=== PATIENT | male | born 1955 | race African-American/Black ===

== ENCOUNTER 2019-02-21 09:27 | Inpatient (IN) | payer BC, SELFPAY ==
--- NOTE | 2019-02-21 09:50 | RAD ---
EXAM: Chest PA and lateral: HISTORY: Cough COMPARISON: None FINDINGS: Heart: Normal cardiac silhouette Aorta: Unremarkable Pulmonary vessels: Normal Costophrenic angles: Costophrenic angles are clear. Lungs: No consolidation or masses. Pneumothorax: No pneumothorax Osseous structures: No osseous abnormalities IMPRESSION: No acute cardiopulmonary process.
[2019-02-21 09:54] LABS: #Eosinphils 0.1 thou/uL (0.0-0.7); #Lymphocytes 0.8 thou/uL (1.20-3.40); #Monocytes 0.4 thou/uL (0.11-0.59); #Neutrophils 2.8 thou/uL (1.40-6.50); %Basophils 0.4 % (0.0-1.0); %Eosinophils 1.6 % (0.0-10.0); %Lymphocytes 18.8 % (21.0-51.0); %Monocytes 9.2 % (0.0-10.0); %Neutrophils 69.9 % (42.0-75.0); Hemoglobin 8.4 g/dL (14.0-18.0); Mean Corpuscular HGB CONC 33.4 g/dL (32.0-36.0); Mean Corpuscular Hemoglobin 32.8 pg (27.0-31.0); Mean Corpuscular Volume 98.2 fL (78.0-98.0); Mean Platelet Volume 7.7 fL (7.4-10.4); Platelet Count 169 thou/uL (130-400); RBC Distribution Width 12.8 % (11.5-14.5); Red Blood Cell (RBC) Count 2.55 mill/uL (4.70-6.10)
[2019-02-21 10:12] LABS: ALT (SGPT) 38 U/L (8-55); AST (SGOT) 43 U/L (5-34); Albumin 3.8 g/dL (3.4-4.8); Alkaline Phosphatase 62 U/L (40-110); Anion Gap 14 mmol/L (10-20); BUN (Urea Nitrogen) 67 mg/dL (8.4-25.7); Bilirubin, Total 0.2 mg/dL (0.2-1.2); CK (CPK) 204 U/L (30-200); Calc. Creatinine Clearance 0 mL/min (70-130); Calcium 9.2 mg/dL (7.8-10.44); Carbon Dioxide 21 mmol/L (23-31); Chloride 110 mmol/L (98-107); Estimated GFR-MDRD 13; Globulin 3.6 g/dL (2.4-3.5); Glucose 92 mg/dL (80-115); Potassium 6.4 mmol/L (3.5-5.1); Protein, Total 7.4 g/dL (5.8-8.1); Sodium 139 mmol/L (136-145)
[2019-02-21 10:58] LABS: Bilirubin Negative (Negative); Blood, Urine Negative (Negative); Clarity Clear (Clear); Glucose, Urine (Dipstick) Normal (Negative); Leukocyte Negative Leu/uL (Negative); Nitrite Negative (Negative); Protein, Urine (Dipstick) Negative (Neg-Trace); Urobilinogen Normal mg/dL (Less than 2)
[2019-02-21] MEDS ORDERED: hydrALAZINE 20 MG/ML VIAL ONE (11:19)
[2019-02-21] MEDS ORDERED: Insulin Regular 300 UNITS/3 ML VIAL ONE (11:19)
[2019-02-21] MEDS ORDERED: Calcium Chloride 1 GM/10 ML Abboject SYRINGE ONE (11:21)
[2019-02-21] MEDS ORDERED: Dextrose 50% Abboject 50 ML SYRINGE ONE (11:21)
--- NOTE | 2019-02-21 13:35 | PDOC.FPRHP ---
- History of Present Illness Chief Complaint: Abnormal labs History of Present Illness: 63 yo male who has been lost to medical follow up for more than 5 years presents due to abnormal labs after visit with new PCP. Patient was found to have elevated Potassium, Creatinine, PSA, and BNP. Patient reports he thought he was in good health. He did note that he had to strain to empty his bladder over the last few weeks, but he recently started flomax and thought that had helped. He notes that he has not had chest pain, sob, n/v/d, or headaches. He reports that he has been mostly taking care of his and that is why he hasn' t taken care of himself like he should. No other complaints. ED Course: 1L Bolus Hydralazine Kayexalate Insulin and D50 Calcium Chloride Hernandez catheter placed - Allergies/Adverse Reactions Allergies Allergy/AdvReac Type Severity Reaction Status Date / Time No Known Allergies Allergy Unverified 02/21/19 11:37 - Home Medications Medication Instructions Recorded Confirmed Type Carvedilol 3.125 mg PO BID 02/21/19 02/21/19 History Lisinopril 10 mg pe PO DAILY 02/21/19 02/21/19 History Tamsulosin HCl [Flomax] 0.4 mg PO DAILY 02/21/19 02/21/19 History - History PMHx: HTN, BPH PSHx: Jaw Surgery FHx: Prostate Cancer Social: No alcohol, drug, or tobacco use - Review of Systems General: denies: fever/chills Eyes: denies: eye pain, vision changes ENT: denies: nasal congestion Respiratory: denies: cough, congestion, shortness of breath Cardiovascular: denies: chest pain, palpitation Gastrointestinal: denies: nausea, vomiting, diarrhea Genitourinary: reports: other (Difficulty with stream) Skin: denies: rashes, lesions Musculoskeletal: denies: pain, tenderness, stiffness, swelling Neurological: denies: numbness, syncope Psychological: denies: anxiety, depression - Vital signs BP: 158/95 HR: 84 RR: 25 Tmax: 99.7 Pox: 100% on RmAir Wt: 73 kg - Physical Exam Constitutional: NAD, awake, alert and oriented HEENT: normocephalic and atraumatic, PERRLA, grossly normal vision, grossly normal hearing, normal nasal mucosa Neck: supple, trachea midline Heart: RRR, normal S1/S2, no murmurs/rubs/gallops -Heart: 2+ pitting edema bilaterally Lungs: CTAB, no respiratory distress, no wheezing Abdomen: soft, non-tender, bowel sounds present Musculoskeletal: normal structure, normal tone, ROM grossly normal Neurological: no focal deficit, CN II-XII intact, normal sensation Skin: no rash/lesions, good turgor, capillary refill <2 seconds Heme/Lymphatic: no unusual bruising or bleeding Psychiatric: normal mood and affect, good judgment and insight, intact recent and remote memory FMR H&P: Results - Labs Result Diagrams: 02/22/19 08:40 02/22/19 04:21 Lab results: WBC 4.0 thou/uL (4.8-10.8) L 02/21/19 09:40 Hgb 8.4 g/dL (14.0-18.0) L 02/21/19 09:40 Hct 25.1 % (42.0-52.0) L 02/21/19 09:40 MCV 98.2 fL (78.0-98.0) H 02/21/19 09:40 Plt Count 169 thou/uL (130-400) 02/21/19 09:40 Neutrophils % 69.9 % (42.0-75.0) 02/21/19 09:40 Sodium 139 mmol/L (136-145) 02/21/19 09:40 Potassium 6.4 mmol/L (3.5-5.1) H 02/21/19 09:40 Chloride 110 mmol/L (98-107) H 02/21/19 09:40 Carbon Dioxide 21 mmol/L (23-31) L 02/21/19 09:40 BUN 67 mg/dL (8.4-25.7) H 02/21/19 09:40 Creatinine 5.53 mg/dL (0.7-1.3) H 02/21/19 09:40 Glucose 92 mg/dL (80-115) 02/21/19 09:40 Calcium 9.2 mg/dL (7.8-10.44) 02/21/19 09:40 Total Bilirubin 0.2 mg/dL (0.2-1.2) 02/21/19 09:40 AST 43 U/L (5-34) H 02/21/19 09:40 ALT 38 U/L (8-55) 02/21/19 09:40 Alkaline Phosphatase 62 U/L (40-110) 02/21/19 09:40 Creatine Kinase 204 U/L (30-200) H 02/21/19 09:40 B-Natriuretic Peptide 420.2 pg/mL (0-100) H 02/21/19 09:40 Serum Total Protein 7.4 g/dL (5.8-8.1) 02/21/19 09:40 Albumin 3.8 g/dL (3.4-4.8) 02/21/19 09:40 Urine Ketones Negative mg/dL (Negative) 02/21/19 10:19 Urine Blood Negative (Negative) 02/21/19 10:19 Urine Nitrite Negative (Negative) 02/21/19 10:19 Ur Leukocyte Esterase Negative Marlen/uL (Negative) 02/21/19 10:19 - EKG Interpretation EK lead EKG shows normal sinus rhythm, Rate (beats per minute): 67, with no ectopics, Interpretation: normal EKG, Conduction normal, ST segments normal, T waves normal, [place] normal, Clinical impression: Normal EKG. FMR H&P: A/P - Problem List (1) Acute renal failure Current Visit: Yes Status: Acute (2) Obstructive uropathy Current Visit: Yes Status: Acute Code(s): N13.9 - OBSTRUCTIVE AND REFLUX UROPATHY, UNSPECIFIED (3) CHF (congestive heart failure) Current Visit: Yes Status: Acute Code(s): I50.9 - HEART FAILURE, UNSPECIFIED (4) Hyperkalemia Current Visit: Yes Status: Acute Code(s): E87.5 - HYPERKALEMIA (5) Elevated PSA Current Visit: Yes Status: Acute Code(s): R97.20 - ELEVATED PROSTATE SPECIFIC ANTIGEN [PSA] (6) Anemia Current Visit: Yes Status: Acute Code(s): D64.9 - ANEMIA, UNSPECIFIED - Plan Acute renal failure 2/2 obstructive uropathy - Recheck BMP - Hernandez placed and urine output to be tracked - Consider Urology consultation and Nephrology consultation depending on results. Hyperkalemia - s/p potassium lowering agents in ED - Recheck BMP - Hopeful that improvement will occur with resolution of renal obstruction CHF - BNP at PCP office of 3200 - I&O - Will need initiation of medication as tolerated if renal function resolves - Diuretics as needed Anemia - Unclear etiology - May be due to kidney disease - Consider iron studies in AM Elevated PSA - Suspicious for cancer - Consider Urology consultation if status improves - Follow up with recommendations when known PCP: JULISA Ray CODE STATUS: FULL CODE Disposition: Stable, will admit to Telemetry for further evaluation and management. Addendum - Attending - Attending Attestation Date/Time: 02/22/19 1120 I personally evaluated the patient and discussed the management with I agree with the History, Examination, Assessment and Plan documented above with any addition or exceptions noted below.
--- NOTE | 2019-02-21 14:42 | PDOC.EVN ---
Event Note - Event Note Event Note: Brief attending admit note. See Resident HX and PE for further details Patient evaluated in ER with Dr Ibarra and care plan formulated after HX and PE and review of recent lab and EKG. 63 yo AA male recently seen at [facility] with s/ s of BPH started tamulosin and lab obtained. Patient sent to ER with critical lab hyperkalemia, elevated PSA and RFTs. EKG without hyperacute T waves. Darby inserted for lower abdominal pain and Acute urinary retention ,1 liter immediate return of clear urine and darby clamped to avoid precipitating hypotension. Patient with ARF and secondary hyperkalemia most likely due to obstructive uropathy. Stat measure for hyperkalemia insulin iv with amp D50, calcium chloride and po kayexylate administered consider NaHCO3 as well. PSA markedly elevated will admit consult Nephrology and Urology. Edematous non tender Bilateral LE rec US screen DVT verse edema related to ARF. patient and counseled to care plan
[2019-02-21] MEDS ORDERED: Ondansetron ODT 4 MG TAB PO PRN (17:47)
[2019-02-21 18:25] LABS: Anion Gap 15 mmol/L (10-20); BUN (Urea Nitrogen) 65 mg/dL (8.4-25.7); Calc. Creatinine Clearance 14 mL/min (70-130); Calcium 9.5 mg/dL (7.8-10.44); Carbon Dioxide 20 mmol/L (23-31); Chloride 113 mmol/L (98-107); Estimated GFR-MDRD 14; Glucose 101 mg/dL (80-115); Potassium 5.7 mmol/L (3.5-5.1); Sodium 142 mmol/L (136-145)
[2019-02-21] MEDS: Acetaminophen 325 MG TAB PO PRN (19:03)
[2019-02-21] MEDS: Heparin 5,000 UNITS/ML VIAL SC SCH (21:02)
[2019-02-22] MEDS: Acetaminophen 325 MG TAB PO PRN ×2 (00:18→15:55)
[2019-02-22 05:15] LABS: Anion Gap 15 mmol/L (10-20); BUN (Urea Nitrogen) 60 mg/dL (8.4-25.7); Calc. Creatinine Clearance 16 mL/min (70-130); Calcium 8.9 mg/dL (7.8-10.44); Carbon Dioxide 18 mmol/L (23-31); Chloride 113 mmol/L (98-107); Estimated GFR-MDRD 16; Glucose 95 mg/dL (80-115); Potassium 5.6 mmol/L (3.5-5.1); Sodium 140 mmol/L (136-145)
--- NOTE | 2019-02-22 07:37 | ULT ---
EXAM: Bilateral lower extremity venous Doppler US HISTORY: bilateral lower extremity edema and pain FINDINGS: Grayscale, color-flow, Doppler evaluation, spectral analysis of the bilateral lower extremities venou s structures is performed with 2-D imaging. The bilateral common femoral, superficial femoral, popliteal, posterior tibial, proximal greater saphenous and profunda femoral veins are imaged. There is normal luminal compressibility, flow, and augmentation in the visualized deep venous structu res of the bilateral lower extremities. IMPRESSION: No evidence of a deep vein thrombosis in either lower extremity.
--- NOTE | 2019-02-22 08:20 | PDOC.FM ---
- Subjective Subjective: Doing well this morning. No acute events overnight. Feels much better after darby placement. Abd pain resolved. Denies any Cp, SOB, fever/chills, n/v. States he has not been diagnosed with anemia before but does endorse chronic fatigue, occasional orthostatic dizziness. Denies any bloody/tarry stools. - Objective MAR Reviewed: Yes Vital Signs & Weight: Vital Signs (12 hours) Temp Pulse Resp BP Pulse Ox 02/22/19 07:01 98.9 F 76 16 160/90 H 100 02/22/19 03:39 99.2 F 81 16 148/91 H 98 02/21/19 23:23 100.1 F H 107 H 18 166/85 H 99 02/21/19 21:47 99.0 F 73 16 167/85 H 99 Weight Weight 65.431 kg I&O: 02/21/19 02/22/19 02/23/19 06:59 06:59 06:59 Intake Total 910 Output Total 2750 Balance -1840 Result Diagrams: 02/22/19 08:40 02/22/19 04:21 EKG Reviewed by me: Yes (Tele: NSR) Phys Exam - Physical Examination Constitutional: NAD (resting comfortably, in good spirits) HEENT: moist MMs pale mucous membranes Neck: supple Respiratory: no wheezing, no rales, no rhonchi, clear to auscultation bilateral Cardiovascular: RRR, no significant murmur, no rub Gastrointestinal: soft, non-tender, no distention, positive bowel sounds - Darby in place, pink urine 1+ pitting edema BL feet Neurological: non-focal, moves all 4 limbs Psychiatric: normal affect, A&O x 3 Dx/Plan (1) Acute renal failure Status: Acute (2) Anemia Code(s): D64.9 - ANEMIA, UNSPECIFIED Status: Acute (3) Elevated PSA Code(s): R97.20 - ELEVATED PROSTATE SPECIFIC ANTIGEN [PSA] Status: Acute (4) Hyperkalemia Code(s): E87.5 - HYPERKALEMIA Status: Acute (5) Obstructive uropathy Code(s): N13.9 - OBSTRUCTIVE AND REFLUX UROPATHY, UNSPECIFIED Status: Acute - Plan Plan: 63yo M with h/o HTN, BPH presents from clinic with AFR and hyperkalemia #Acute renal failure 2/2 obstructive uropathy - DEX in clinic WNL, labs showed PSA 110, K 6.8, Cr 5. Sent to ED - Cr improved to 4.65, K 5.6 - Darby in place, O 2750, pink-tinged - Nephro consulted, apprec recs - overall improving, will cont - Check Mg, Phos - Consider Urology consult, will need OP f/u #Hyperkalemia, improving - K 6.4 -> 5.6 - Given K lowering agents in ED, cont diuresis and monitor - On tele, no acute events #Elevated BNP - BNP at PCP office of 3200, down to 420 here - Strict I&O - suspected 2/2 volume overload from obstructive uropathy - Will get ECHO #Anemia - Unclear etiology or time course - No acute GI 2/2 - May be due to kidney disease - Iron studies, FOBT, B12, folate, repeat CBC this AM #Elevated PSA - Suspicious for cancer - Consider Urology consultation if status improves, will need OP f/u Code: Full Diet: Renal IVF: SL DVT: Heparin - will hold until CBC returns to ensure no acute blood loss anemia PCP: JULISA Ray Disposition: Stable, admitted to tele. No acute events. Renal function improving. Darby in place. Nephro recs. Workup continues. Hospitalization > 48 hours. Addendum - Attending - Attending Attestation Date/Time: 02/22/19 2365 I personally evaluated the patient and discussed the management with Dr. Lisa Flores I agree with the History, Examination, Assessment and Plan documented above with any addition or exceptions noted below. Patient improved will continue to investigate and trend macrocytic anemia. He continue with impreesive output and remobilization 3rd spaced fluids.
[2019-02-22 09:07] LABS: #Lymphocytes 1.1 thou/uL (1.20-3.40); #Monocytes 0.5 thou/uL (0.11-0.59); #Neutrophils 3.8 thou/uL (1.40-6.50); %Basophils 0.3 % (0.0-1.0); %Eosinophils 0.6 % (0.0-10.0); %Lymphocytes 19.2 % (21.0-51.0); %Monocytes 9.7 % (0.0-10.0); %Neutrophils 70.3 % (42.0-75.0); Hemoglobin 8.4 g/dL (14.0-18.0); Mean Corpuscular HGB CONC 33.7 g/dL (32.0-36.0); Mean Corpuscular Hemoglobin 33.1 pg (27.0-31.0); Mean Corpuscular Volume 98.1 fL (78.0-98.0); Mean Platelet Volume 7.8 fL (7.4-10.4); Platelet Count 188 thou/uL (130-400); RBC Distribution Width 12.7 % (11.5-14.5); Red Blood Cell (RBC) Count 2.54 mill/uL (4.70-6.10); White Blood Cell (WBC) Count 5.5 thou/uL (4.8-10.8)
[2019-02-22 09:22] LABS: Magnesium 1.4 mg/dL (1.6-2.6); Phosphorus 3.8 mg/dL (2.3-4.7)
[2019-02-22] MEDS: Heparin 5,000 UNITS/ML VIAL SC SCH ×3 (09:36→21:26)
[2019-02-22] MEDS: Tamsulosin HCl 0.4 MG CAP PO SCH (09:36)
[2019-02-22] MEDS: Carvedilol 3.125 MG TAB PO SCH ×2 (09:36→21:25)
[2019-02-22 09:40] LABS: Ferritin 545.38 ng/mL (22-322)
[2019-02-22 11:09] LABS: Iron Binding Capacity, Total 291 mcg/dL (261-462)
[2019-02-22] MEDS ORDERED: Fluticasone Propionate Nasal Spray 16 gm Bottle NASAL SCH (12:30)
[2019-02-22] MEDS ORDERED: Magnesium Oxide 400 MG TAB PO SCH (17:30)
[2019-02-22 18:08] LABS: Creatinine, Urine 35.89 mg/dL (63-166)
[2019-02-22] MEDS: Sodium Bicarbonate 75 MEQ in Sodium Chloride 0.45% 1,000 ML IV SCH (18:08)
[2019-02-22 18:20] LABS: Anion Gap 13 mmol/L (10-20); BUN (Urea Nitrogen) 56 mg/dL (8.4-25.7); Calc. Creatinine Clearance 16 mL/min (70-130); Carbon Dioxide 21 mmol/L (23-31); Chloride 111 mmol/L (98-107); Estimated GFR-MDRD 17; Glucose 92 mg/dL (80-115); Iron 79 ug/dL (65-175); Iron Binding Capacity, Total 316 mcg/dL (261-462); Potassium 5.2 mmol/L (3.5-5.1); Sodium 140 mmol/L (136-145)
--- NOTE | 2019-02-22 20:29 | CON ---
DATE OF CONSULTATION: 02/22/2019 REQUESTING PHYSICIAN: Narendra Ibarra MD REASON FOR CONSULTATION: Acute renal failure. HISTORY OF PRESENT ILLNESS: A 63-year-old male with past medical history significant for hypertension, who was brought in for evaluation and treatment of abnormal labs of elevated creatinine and difficulty urination. The patient has been having difficulty micturition since about 8 weeks, reportedly has worsening of symptoms, necessitating presentation to the health clinic. The patient was then started on antihypertensives for blood pressure treatment with lisinopril and carvedilol. He also got blood work collected and was subsequently called to report to the emergency room for further evaluation and treatment of abnormal labs. The patient was found to have elevated creatinine of above 6 and also high urinary retention, and had Hernandez catheter placement. He also was found to have hyperkalemia, which was treated medically with some improvement. Nephrology consult was requested due to elevated creatinine. The patient had worsening leg edema, which has improved since admission. He also reported weight loss of about 20 pounds in the last several months. The patient has not seen a doctor in the last 5 years, but prior to that denied any medical condition. The patient admitted to using ibuprofen as well as BC Powder on a regular basis for pain and headaches. He also reported recent episode of nausea, vomiting, and diarrhea, which have resolved. He denied chest pain, fever, chills, nausea, vomiting, diarrhea, abdominal pain, or focal weakness. PAST MEDICAL HISTORY: 1. Hypertension. 2. BPH. PAST SURGICAL HISTORY: Jaw surgery. FAMILY HISTORY: Significant for hypertension, diabetes, and CVA in mother as well as heart disease in father. SOCIAL HISTORY: The patient lives with spouse. Denied alcohol, drugs, or tobacco use. The patient also reported prostate cancer in family. ALLERGIES: NO KNOWN DRUG ALLERGIES REPORTED. MEDICATIONS: PRIOR TO HOSPITAL MEDICATIONS: 1. Carvedilol 3.125 mg p.o. b.i.d. 2. Lisinopril 10 mg p.o. daily. 3. Flomax 0.4 mg p.o. daily. Of note, these medications were recently started on February 19, 2019. CURRENT HOSPITAL MEDICATIONS: 1. Carvedilol 3.125 mg p.o. b.i.d. 2. Heparin 5000 units subcutaneously t.i.d. 3. Flomax 0.4 mg p.o. daily. 4. Acetaminophen 650 mg q.4 p.r.n. 5. Zofran ODT q.6 hours p.r.n. for nausea and vomiting. REVIEW OF SYSTEMS: A 12-point review of system was performed and was negative other than pertinent positives and negatives included in the history of present illness. PHYSICAL EXAMINATION: VITAL SIGNS: Temperature 99.9, pulse 88, respiratory rate 14, SpO2 of 97% on room air, and blood pressure is 169/91. GENERAL: A male patient, in no obvious distress. Afebrile. Anicteric. Acyanotic. HEENT: Normocephalic and atraumatic. Oral mucosa is moist. NECK: Supple with no JVD. CARDIOVASCULAR: Regular rhythm and rate with normal heart sounds 1 and 2. RESPIRATORY: Fair air entry bilaterally with no obvious crackles or rhonchi or use of accessory muscles. GI: Full, soft, nontender, nondistended with normal bowel sounds. UROGENITAL: Hernandez catheter is in place, draining some bloody urine. EXTREMITIES: Mild bilateral ankle and feet edema noted. No erythema appreciated. SUBGRADE ROLLER OPERATOR: Conscious and alert and oriented x3 with appropriate mental status. Cranial nerves 2 through 12 are grossly intact. The patient moves all extremities. DIAGNOSTIC DATA: CBC earlier today showed WBC count of 5.5, hemoglobin of 8.4, MCV of 98.1, platelet of 188. BMP earlier today showed sodium 140, potassium 5.6, chloride 113, CO2 of 18, BUN 60, creatinine 4.65, glucose 95, calcium 8.9. Of note, on presentation on February 21, potassium was 6.4 and BUN was 67 with creatinine of 5.53. His phosphorus earlier today is 3.8 with magnesium of 1.4. Urinalysis performed on February 21 showed clear colorless urine with pH of 6.0, specific gravity of 1.008, negative protein, ketone, blood, nitrite, bilirubin, and leukocyte esterase. ASSESSMENT: 1. Renal failure, acute and etiology is unclear. The patient, however, seems to have at least some component of chronic kidney disease with presumed acute exacerbation. Etiology is unclear but obstructive uropathy seems to be contributing. Inherent kidney pathology cannot be ruled out as the patient has been on nonsteroidal anti-inflammatory drugs. He also was recently diagnosed with hypertension and has not been on medication prior. In fact, has not seen a physician in the last 5 years or thereabout. 2. Presumed chronic kidney disease. 3. Anemia in chronic kidney disease. 4. Metabolic acidosis. 5. Hypertension: 6. Urinary retention, most likely [id number]. 7. Postobstructive diuresis with possible volume depletion. 8. Hypomagnesemia. 9. Unintentional weight loss of about 20 pounds in the last several months. Etiology is unclear. Given prior history of urinary retention and difficulty micturition as well as family history of prostate cancer, prostate cancer is a concern here. 10. Hyperkalemia due to lisinopril therapy as well as chronic kidney disease. Metabolic acidosis also is contributory. PLAN: 1. We will get repeat BMP as well as urine electrolytes. 2. We will also get renal ultrasound. 3. We will start the patient on bicarb containing IV fluid as the patient is in negative balance in the last few days. Some component of volume depletion from postobstructive diuresis cannot be ruled out. 4. We will also get Urology consult given urinary retention and possibility of prostate cancer. 5. We will also get iron chemistry. 6. We will monitor intake and output as well as renal function. 7. Further treatment to follow depending on hospital course. Many thanks for involving us in the care of this patient. We will follow along with you. Job ID: [id number]
[2019-02-22] MEDS: Sodium Bicarbonate Tab 325 MG TAB PO SCH (21:25)
[2019-02-22] MEDS: Magnesium Oxide 400 MG TAB PO SCH (21:25)
[2019-02-22] MEDS: Fluticasone Propionate Nasal Spray 16 gm Bottle NASAL SCH (21:26)
[2019-02-22] MEDS ORDERED: Prevnar 13-Val Conj/PF 0.5 ML SYRINGE IM ONE (22:30)
--- NOTE | 2019-02-22 23:02 | ULT ---
Renal sonogram HISTORY: Renal failure. FINDINGS: Right kidney is 11.5 cm length and the left is 10.5 cm. There is mild dilatation of the otilio yces and pelves of each kidney. No stones visible. No solid masses. Urinary bladder is decompressed by a Hernandez catheter. IMPRESSION: Mild bilateral hydronephrosis. Cause is not evident.
[2019-02-23 05:15] LABS: Albumin 3.5 g/dL (3.4-4.8); Anion Gap 14 mmol/L (10-20); BUN (Urea Nitrogen) 50 mg/dL (8.4-25.7); BUN/Creatinine Ratio 12.66; Calc. Creatinine Clearance 18 mL/min (70-130); Calcium 8.8 mg/dL (7.8-10.44); Carbon Dioxide 22 mmol/L (23-31); Chloride 109 mmol/L (98-107); Estimated GFR-MDRD 19; Glucose 87 mg/dL (80-115); Phosphorus 3.7 mg/dL (2.3-4.7); Potassium 4.9 mmol/L (3.5-5.1); Sodium 140 mmol/L (136-145)
[2019-02-23] MEDS: Sodium Bicarbonate 75 MEQ in Sodium Chloride 0.45% 1,000 ML IV SCH ×3 (05:21→16:52)
--- NOTE | 2019-02-23 07:47 | PDOC.FM ---
- Subjective Subjective: Doing well this morning, no acute events overnight. Mild gas pain. Voiding and stooling normally. Tolerating PO intake well. No fever/chills, n/v, CP, SOB. Hernandez in place, good UOP, pink-tinged. LE edema has resolved. - Objective MAR Reviewed: Yes Vital Signs & Weight: Vital Signs (12 hours) Temp Pulse Resp BP Pulse Ox 02/23/19 04:30 98.8 F 79 16 158/85 H 100 02/23/19 00:04 98.8 F 80 16 145/88 H 98 02/22/19 20:00 99.5 F 88 20 167/79 H 100 Weight Weight 62.868 kg I&O: 02/22/19 02/23/19 02/24/19 06:59 06:59 06:59 Intake Total 910 3020 Output Total 2750 5150 Balance -1840 -2130 Result Diagrams: 02/22/19 08:40 02/23/19 04:16 EKG Reviewed by me: Yes (Tele: NSR) Phys Exam - Physical Examination Constitutional: NAD (resting comfortably, polite, in good spirits) HEENT: moist MMs Neck: supple Respiratory: no wheezing, no rales, no rhonchi, clear to auscultation bilateral Cardiovascular: RRR, no significant murmur, no rub Gastrointestinal: soft, non-tender, no distention, positive bowel sounds Musculoskeletal: no edema, pulses present Neurological: non-focal, moves all 4 limbs Psychiatric: normal affect, A&O x 3 Dx/Plan (1) Acute renal failure Status: Acute (2) Anemia Code(s): D64.9 - ANEMIA, UNSPECIFIED Status: Acute (3) Elevated PSA Code(s): R97.20 - ELEVATED PROSTATE SPECIFIC ANTIGEN [PSA] Status: Acute (4) Hyperkalemia Code(s): E87.5 - HYPERKALEMIA Status: Acute (5) Obstructive uropathy Code(s): N13.9 - OBSTRUCTIVE AND REFLUX UROPATHY, UNSPECIFIED Status: Acute - Plan Plan: 63yo M with h/o HTN, BPH presents from clinic with AFR and hyperkalemia #Acute renal failure/ATN 2/2 obstructive uropathy, improving - DEX in clinic WNL, labs showed PSA 110, K 6.8, Cr 5. Sent to ED - Cr 4.65 -> 3.95 - Hernandez in place, pink-tinged urine - Nephro consulted, added Bicarb fluids, rec Uro consult, cont to monitor renal function, apprec recs - Uro consulted, apprec recs - overall improving, will cont - Monitor lytes and replace as necessary - Renal US - mild hydronephrosis #Hyperkalemia, resolved - K 6.4 -> 5.6 -> 4.9 - Given K lowering agents in ED, cont diuresis and monitor - On tele, no acute events #HFrEF, new onset - BNP at PCP office of 3200, down to 420 here - Echo 20-25% - On Coreg, will titrate up. Will need Aldactone and Lisinopril if renal function improves - Strict I&O - Consult HF clinic and cardiac rehab - Will consult cards for new onset CHF for lifevest vs defib - Cardiac rehab and HF clinic consulted. - Possibly 2/2 volume overload from obstructive uropathy, will benefit from repeat ECHO as OP following renal recovery #Anemia - Hb stable at 8.4 - Possibly 2/2 kidney disease - Unclear etiology or time course - No acute GI bleed - Iron studies, B12, folate WNL. FOBT negative. #Elevated PSA - Suspicious for cancer - Urology consulted, apprec recs. Code: Full Diet: Renal IVF: NaBicarb NS @ 75cc/hr DVT: Heparin - will hold until CBC returns to ensure no acute blood loss anemia PCP: JULISA Ray Disposition: Stable, admitted to tele. No acute events. Renal function improving. Hernandez in place. Nephro recs. New onset HFrEF. Cards consult. Hospitalization > 48hrs. Addendum - Attending - Attending Attestation Date/Time: 02/23/19 5190 I personally evaluated the patient and discussed the management with Dr. Lisa Flores I agree with the History, Examination, Assessment and Plan documented above with any addition or exceptions noted below.
[2019-02-23] MEDS: Sodium Bicarbonate Tab 325 MG TAB PO SCH ×2 (08:53→22:02)
[2019-02-23] MEDS: Tamsulosin HCl 0.4 MG CAP PO SCH (08:53)
[2019-02-23] MEDS: Heparin 5,000 UNITS/ML VIAL SC SCH ×2 (08:54→22:02)
[2019-02-23] MEDS: Carvedilol 3.125 MG TAB PO SCH (08:54)
[2019-02-23] MEDS: Fluticasone Propionate Nasal Spray 16 gm Bottle NASAL SCH ×2 (08:57→22:03)
[2019-02-23] MEDS: Magnesium Oxide 400 MG TAB PO SCH ×2 (08:58→22:10)
[2019-02-23] MEDS ORDERED: Magnesium 2 GM/50 ML 2 GM in Premix Bag 1 BAG IVPB SCH (10:00)
--- NOTE | 2019-02-23 10:12 | PRG ---
DATE OF SERVICE: 02/23/2019 SERVICE: Nephrology. SUBJECTIVE: A 63-year-old male, seen in followup for renal failure. The patient with difficulty urination, has been passing large amounts of urine since insertion of Hernandez catheter. Urine also is noted to be bloody. No shortness of breath. Bilateral leg swelling has resolved. Oral intake is improving. Denied nausea or vomiting. OBJECTIVE: VITAL SIGNS: Temperature 99.2, pulse 78, respiratory rate 18, SpO2 of 100% on room air, blood pressure is 158/75. GENERAL: Chronically ill-looking male patient, in no obvious distress. Afebrile. Anicteric. Acyanotic. HEENT: Normocephalic and atraumatic. Oral mucosa is moist. NECK: Supple with no JVD. CARDIOVASCULAR: Regular rhythm and rate with normal heart sounds 1 and 2. RESPIRATORY: Good air entry bilaterally with no obvious crackle. No rhonchi or use of accessory muscles was appreciated. GI: Full, soft, nontender, nondistended with normal bowel sounds. UROGENITAL: Hernandez catheter is in place draining bloody urine. EXTREMITIES: Grossly normal looking, atraumatic with no edema or erythema. GIS PHYSICAL SCIENTIST: Conscious, alert, oriented x3 with appropriate mental status. Cranial nerves 2 through 12 are grossly intact. DIAGNOSTIC DATA: Renal function panel showed sodium 140, potassium 4.9, chloride 109, CO2 of 22, BUN 50, creatinine 3.95, glucose 87, calcium 8.8, phosphorus 3.7, albumin 3.5. Magnesium is 1.3. PTH intact to 289. Note that creatinine has gone down from admission level of 5.53 to 3.95. ASSESSMENT: 1. Acute kidney injury. 2. Chronic kidney disease, stage is unclear. No prior renal function test is available. 3. Renal function is felt to be due to obstructive uropathy, which seems to be chronic with acute exacerbation as well as cardiorenal and possible component from chronic NSAID use. 4. Hypomagnesemia. 5. Hyperkalemia. 6. Metabolic acidosis. 7. Ischemic cardiomyopathy with ejection fraction of 20% to 25%. 8. Anemia in chronic kidney disease. 9. Secondary hyperparathyroidism. 10. Volume depletion from postobstructive diuresis. 11. Bladder outlet obstruction with hematuria. 12. Bilateral hydronephrosis of unclear etiology. PLAN: 1. We will increase IV fluid to 150 mL/h. 2. We will repeat serum magnesium with magnesium sulfate. 3. We will recheck renal function as well as CBC. 4. We will monitor electrolytes and replete as needed. 5. Further treatment to follow depending on hospital course. Neurology evaluation is awaited at this time. Job ID: [id number]
[2019-02-23] MEDS: Carvedilol 6.25 MG TAB PO SCH (16:55)
[2019-02-23] MEDS: Acetaminophen 325 MG TAB PO PRN ×2 (16:57→22:10)
--- NOTE | 2019-02-23 19:58 | CON ---
DATE OF CONSULTATION: HISTORY OF PRESENT ILLNESS: A 63-year-old male with past medical history of hypertension and BPH and is admitted for acute renal failure due to obstructive uropathy, had an echo done yesterday and has a new diagnosis of CHF with an ejection fraction of 20% to 25% noted on the echocardiogram. We were consulted for management of this. The patient reports feeling well today. He notes that on initial presentation to the hospital, he had significant bilateral lower extremity edema, which has now resolved. He denies any shortness of breath, chest pain, or heart palpitations. He denies any history of prior heart problems. He had not received medical care for some years and was recently diagnosed with high blood pressure and started on an MADDY inhibitor and beta-vicky by his primary care physician prior to admission to the hospital. His initial symptoms at that time were difficulty urinating, and he was admitted for laboratory abnormalities. REVIEW OF SYSTEMS: GENERAL: Denies fever or chills. RESPIRATORY: Denies shortness of breath or difficulty breathing. CARDIOVASCULAR: Denies chest pain or palpitations. EXTREMITIES: Reports lower extremity edema. Remaining 12-point review of systems reviewed and negative. LABORATORY DATA: Sodium 140, potassium 4.9, chloride 109, carbon dioxide 22, BUN 50, creatinine 3.95, magnesium 1.3 today. On admission, his BNP was 420. IMAGING STUDIES: Echocardiogram showed ejection fraction of 20% to 25%, mild mitral regurgitation, moderately increased left ventricular size. PHYSICAL EXAMINATION: VITAL SIGNS: Temperature 98.8, pulse 87, respirations 15, 99% on room air, blood pressure 158/75. GENERAL: Pleasant, well-appearing male in no acute distress. HEENT: Normocephalic, atraumatic. NECK: Supple. No JVD noted. CARDIOVASCULAR: Regular rate and rhythm, 2/6 systolic murmur heard best at the apex. RESPIRATORY: Clear to auscultation bilaterally, normal effort. GI: Nontender, nondistended. EXTREMITIES: No peripheral edema. Pulses present. ASSESSMENT AND PLAN: Systolic heart failure, new diagnosis. Plan to continue beta-vicky. This dose was increased today to 6.25 b.i.d. We will monitor blood pressures throughout the day. If continues to be increased, would recommend starting amlodipine for further blood pressure control. Due to renal function, MADDY not recommended at this time. The patient will need a repeat echocardiogram with possible further workup in the coming months. Job ID: [id number] EYAL
--- NOTE | 2019-02-24 00:46 | CON ---
DATE OF CONSULTATION: 02/23/2019 INDICATION FOR CONSULTATION: This is a 63-year-old gentleman, who was found to have a severe decrease in left ventricular systolic function after he was found to have obstructive uropathy and had acute on chronic renal failure. HISTORY OF PRESENT ILLNESS: This very unfortunate 63-year-old gentleman, who had been in a good state of health until around December. He started noticing he has some decrease in urination, having difficulty urinating and then around January, he noticed that he was having more edema. He had lower extremity edema, but he denied any chest pain or shortness of breath. He presented to his doctor's office for just evaluation and was found to have significant abnormalities in his laboratory data with anemia and then elevated potassium as well as creatinine, which was significantly elevated and he was advised to be admitted to the hospital. He had had no other significant symptoms. He has had no previous cardiac history that he was aware of. PAST MEDICAL HISTORY: Significant for benign prostatic hypertrophy and hypertension. He has had jaw surgery due to a fracture. SOCIAL HISTORY: He is taking care of his , who has breast cancer. He retired from his work a couple of years ago. 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 He also states he adopted three of his great grandchildren. He is taking care of them, age 5, 6 and 8. He smokes marijuana. He denies any tobacco abuse. He has occasional alcohol use. FAMILY HISTORY: Unremarkable for any early heart disease. Positive for diabetes. His mother had a CVA, but she was in her 80s. He also has some history of diabetes. REVIEW OF SYSTEMS: He denies any HEENT complaints or pulmonary complaints. He has no shortness of breath. CARDIOVASCULAR: He denies any chest pain or palpitations. GI: He denies any nausea, vomiting, or diarrhea. He did complain of abdominal distention with retention of the fluid. He had urinary complaints as above. EXTREMITIES: He had complaints of claudication. He did complain of some lower extremity edema from the knees down to the feet, which was significantly elevated. This is now resolved since he has had a Hernandez catheter placed and has been urinating quite a bit. Neurologically, he had denied any history of seizures or syncope. He has actually put out quite a bit of urine since he has been here. His I's and O's, he has put out almost 2 L on and and then today, he is thus far -580. He has no lower extremity edema. LABORATORY DATA: Shows sodium 140, potassium is 5.6 at this time and on admission was 6.4. His BUN is now 60, previously was 67. Creatinine is 4.65, on admission was 5.53. His BNP was 420. Troponin I is negative for any evidence of myocardial infarction or ischemia. His AST was slightly elevated at 43. His CK was elevated at 204, but MBs are negative. His hemoglobin was 8.4, hematocrit 24.9, WBC of 5.9, platelet count 188,000. His EKG showed normal sinus rhythm with no acute changes and normal EKG. He was found to have an obstruction due to most likely embolic prostate. IMPRESSION: 1. Obstructive uropathy with acute renal failure. Hopefully, this will resolve after the obstruction is relieved. He may most likely will need to undergo some type of prostate surgery. 2. Acute renal insufficiency, which may be acute on chronic, unclear, but he has been taking actually increased amounts of nonsteroidals due to some back pain. He also was taking I believe BC powders, which have increased amount of caffeine. At this time, hopefully, this will resolve. Once the fluid is resolved, hopefully, the ejection fraction also will improve. 3. Severe decrease in left ventricular systolic function with ejection fraction of 20% to 25%. I would suggest we repeat his echocardiogram. 4. In the next few days to weeks, see if ejection fraction has improved after he has been diuresed. 5. Also due to the fact that he had elevated potassium at that time, this may also play a role in that. 6. History of hypertension, which is under reasonable control at this time. His blood pressure was 158/75, but now has increased back up to 160/89. We will continue to monitor that. May need to adjust his medications. Heart rates in the 80s and shows sinus rhythm, respiratory rate is 18. He is afebrile. O2 saturation 99%. 7. History of anemia, which most likely is due to his renal disease which may be chronic in nature. MEDICATIONS: He has been given: 1. Magnesium. 2. Bicarb. 3. Coreg 6.25 mg b.i.d. 4. He is on fluticasone nasal spray. 5. He has been given subcu heparin. 6. He is on magnesium 400 mg b.i.d., as well as Flomax 0.4 mg a day. 7. Tylenol. 8. Zofran p.r.n. We will have to continue to follow the patient with you. If his ejection fraction does not improve, then he may need to be evaluated for underlying coronary artery disease. This will need to be further evaluated if he has severe decrease in ejection fraction. Also, he may become a candidate for LifeVest or an implantable defibrillator if ejection fraction remains severely compromised. I am uncertain as to why the ejection fraction will be down. He denied any illicit drug use in the past. No significant tobacco abuse, except for the marijuana. It could be due to his hypertension, which may be long-standing. He will definitely need to control the blood pressure somewhat better at this time. We will be more than happy to continue to follow the patient with you. He has lost some weight, also unintentional weight loss, which he says but he did not mention this to me. I did find in the records. He said he had not lost any significant weight. He said he had gained some weight until he arrived in the hospital, then he lost significant amount of weight, but is due to the diuresis. His BNP was only 420, which does not indicate severe congestive heart failure and enzymes are negative. There is no indication of ischemia or myocardial infarction. I would agree with the present medication. We will perhaps add amlodipine to lower the blood pressure even further. Job ID: [id number]
[2019-02-24 04:36] LABS: Hemoglobin 8.7 g/dL (14.0-18.0); Mean Corpuscular HGB CONC 34.3 g/dL (32.0-36.0); Mean Corpuscular Hemoglobin 33.1 pg (27.0-31.0); Mean Corpuscular Volume 96.5 fL (78.0-98.0); Mean Platelet Volume 8.1 fL (7.4-10.4); Platelet Count 183 thou/uL (130-400); RBC Distribution Width 12.4 % (11.5-14.5); Red Blood Cell (RBC) Count 2.63 mill/uL (4.70-6.10); White Blood Cell (WBC) Count 4.4 thou/uL (4.8-10.8)
[2019-02-24 04:50] LABS: Albumin 3.4 g/dL (3.4-4.8); Anion Gap 16 mmol/L (10-20); BUN (Urea Nitrogen) 42 mg/dL (8.4-25.7); BUN/Creatinine Ratio 12.77; Calc. Creatinine Clearance 20 mL/min (70-130); Calcium 8.8 mg/dL (7.8-10.44); Carbon Dioxide 22 mmol/L (23-31); Chloride 104 mmol/L (98-107); Estimated GFR-MDRD 23; Glucose 90 mg/dL (80-115); Magnesium 1.8 mg/dL (1.6-2.6); Phosphorus 3.8 mg/dL (2.3-4.7); Potassium 4.3 mmol/L (3.5-5.1); Sodium 138 mmol/L (136-145)
--- NOTE | 2019-02-24 06:39 | PDOC.FM ---
- Subjective Subjective: Doing well this morning, no acute events overnight. Still with mild left-back cramping but improved. No fever/chills, Cp/SOB, n/v, diarrhea/constipation. Tolerating PO well. High urine OP. - Objective MAR Reviewed: Yes Vital Signs & Weight: Vital Signs (12 hours) Temp Pulse Resp BP Pulse Ox 02/24/19 03:40 98.6 F 86 16 159/93 H 100 02/23/19 19:30 99.1 F 74 16 131/78 100 Weight Weight 62.823 kg I&O: 02/22/19 02/23/19 02/24/19 06:59 06:59 06:59 Intake Total 910 3020 4180 Output Total 2750 5150 3550 Balance -1840 -2130 630 Result Diagrams: 02/24/19 04:11 02/24/19 04:11 EKG Reviewed by me: Yes (NSR) Phys Exam - Physical Examination Constitutional: NAD (resting comfortably) HEENT: moist MMs Neck: supple Respiratory: no wheezing, no rales, no rhonchi, clear to auscultation bilateral Cardiovascular: RRR, no significant murmur, no rub Gastrointestinal: soft, non-tender, no distention, positive bowel sounds Hernandez - pink-tinged urine Musculoskeletal: no edema, pulses present Neurological: non-focal, moves all 4 limbs Psychiatric: normal affect, A&O x 3 Dx/Plan (1) Acute renal failure Status: Acute (2) Anemia Code(s): D64.9 - ANEMIA, UNSPECIFIED Status: Acute (3) Elevated PSA Code(s): R97.20 - ELEVATED PROSTATE SPECIFIC ANTIGEN [PSA] Status: Acute (4) Hyperkalemia Code(s): E87.5 - HYPERKALEMIA Status: Acute (5) Obstructive uropathy Code(s): N13.9 - OBSTRUCTIVE AND REFLUX UROPATHY, UNSPECIFIED Status: Acute - Plan Plan: 63yo M with h/o HTN, BPH presents from clinic with AFR and hyperkalemia 2/2 obstructive uropathy. #Acute renal failure/ATN 2/2 obstructive uropathy, improving - DEX in clinic WNL, labs showed PSA 110, K 6.8, Cr 5. Sent to ED - Cr 4.65 -> 3.95 -> 3.29 - Hernandez in place, pink-tinged urine - Nephro consulted, added Bicarb fluids, rec Uro consult, cont to monitor renal function, apprec recs - Uro consulted, apprec recs - Overal improving, Monitor lytes and replace as necessary - Renal US - mild hydronephrosis #Hyperkalemia, resolved - K 6.4 -> 4.3 - Given K lowering agents in ED, cont diuresis. On tele, no acute events. Monitor #HFrEF, new onset - BNP at PCP office of 3200, down to 420 here - Echo 20-25% - On Coreg 6.25mg BID. Will need Aldactone and Lisinopril if renal function improves - Strict I&O - Consult HF clinic and cardiac rehab - Cards consulted, apprec recs, for new onset CHF. Consider norvasc for BP control, rec continued management and repeat echo in next days to weeks for eval of improvement of Ef #Anemia - Hb stable at 8.4 -> 8.7. No s/s of acute blood loss. VSS. - Possibly 2/2 kidney disease - Iron studies, B12, folate WNL. FOBT negative. #HTN - Uncontrolled in past, elevated on hospitalization - Holding nephrotoxic meds, increased dose of coreg yesterday - Consider norvasc for BP control. Would benefit from MADDY-I if renal function improves. #Elevated PSA - Suspicious for cancer - Urology consulted, apprec recs. Code: Full Diet: Renal IVF: NaBicarb NS @ 150cc/hr DVT: Heparin PCP: JULISA Ray Disposition: Stable, admitted to tele. No acute events. Renal function improving. Hernandez in place. Nephro/Uro recs. New onset HFrEF, possibly 2/2 volume overload. Overall improving. Will cont to monitor as renal function improves. Addendum - Attending - Attending Attestation Date/Time: 02/24/19 5345 I personally evaluated the patient and discussed the management with Dr. Flores. I agree with the History, Examination, Assessment and Plan documented above with any addition or exceptions noted below. Patient reports feeling well this morning. His renal function continues to slowly improve with relieving his obstructive uropathy. Awaiting urology recs. Will need improved BP control. Await further recs from Nephro. Cardiology has eval'd for possible new onset CHF but they would like to repeat Echo once outside this acute illness to confirm or rule out.
[2019-02-24] MEDS: Sodium Bicarbonate Tab 325 MG TAB PO SCH ×2 (08:50→20:17)
[2019-02-24] MEDS: Tamsulosin HCl 0.4 MG CAP PO SCH (08:51)
[2019-02-24] MEDS: Magnesium Oxide 400 MG TAB PO SCH ×2 (08:51→20:17)
[2019-02-24] MEDS: Carvedilol 6.25 MG TAB PO SCH ×3 (08:52→16:09)
[2019-02-24] MEDS: Heparin 5,000 UNITS/ML VIAL SC SCH ×2 (08:52→20:17)
[2019-02-24] MEDS: Fluticasone Propionate Nasal Spray 16 gm Bottle NASAL SCH ×2 (09:00→20:16)
[2019-02-24] MEDS ORDERED: Ergocalciferol 1.25 MG(50,000 UNITS) CAP PO SCH (09:00)
[2019-02-24] MEDS ORDERED: Amlodipine 5 MG TAB PO SCH (09:00)
[2019-02-24] MEDS: Sodium Bicarbonate 75 MEQ in Sodium Chloride 0.45% 1,000 ML IV SCH (09:01)
--- NOTE | 2019-02-24 11:34 | PRG ---
DATE OF SERVICE: 02/24/2019 SERVICE: Nephrology. SUBJECTIVE: A 63-year-old male seen in followup for acute kidney injury. The patient was found to have urinary retention status post a catheter placement. Still having polyuria. Denied shortness of breath, leg swelling, cough, fever, nausea, or vomiting. OBJECTIVE: VITAL SIGNS: Temperature 98.6, pulse 86, respiratory rate 16, SpO2 of 100% on room air, blood pressure is 159/93. GENERAL: Chronically ill-looking male, in no distress. Afebrile. Anicteric. Acyanotic. HEENT: Normocephalic, atraumatic. Oral mucosa is moist. CARDIOVASCULAR: Regular rhythm and rate with normal heart sounds 1 and 2. RESPIRATORY: Good air entry bilaterally with no crackle or rhonchi or use of accessory muscles. GI: Full, soft, nontender, nondistended with normal bowel sounds. UROGENITAL: Hernandez catheter is in place, draining bloody urine. ACADEMIC ADVISER: Conscious and alert and oriented x3 with appropriate mental status. DIAGNOSTIC DATA: CBC showed WBC count of 4.4, hemoglobin of 8.7, platelets of 183. Chemistry showed sodium 138, potassium 4.3, chloride 104, CO2 of 22, BUN 42, creatinine 3.29, glucose 90, calcium 8.8, phosphorus 3.8, albumin 3.2. Magnesium is 1.8 and vitamin D is 11. ASSESSMENT: 1. Acute kidney injury: This is most likely due to obstructive uropathy. The patient, however, was on regular NSAID at home, making a case for inherent kidney problem. Creatinine is trending downwards with IV fluid therapy. 2. Urinary retention with post obstructive diuresis. 3. Hyperkalemia: Resolved. 4. Bilateral leg edema: Due to chronic kidney disease and cardiac decompensation. Improved, in fact resolved with postoperative diuresis and improving renal function. 5. Persistent hematuria: Given associated weight loss, bladder pathology is a concern. 6. Bilateral mild hydronephrosis: Most likely related to urinary bladder outlet obstruction. 7. Hypertension: Control is acceptable. 8. Anemia: Most likely due to chronic kidney disease. 9. Vitamin D deficiency. PLAN: 1. We will continue IV fluid therapy with sodium bicarb containing fluid. We will monitor closely for fluid overload given reduced systolic function. 2. Continue to monitor intake and output. Awaiting Urology consult for persistent hematuria evaluation. We will also start the patient on vitamin D supplementation. 3. Further treatment to follow depending on hospital course. Job ID: [id number]
[2019-02-24] MEDS: Acetaminophen 325 MG TAB PO PRN (16:09)
--- NOTE | 2019-02-24 17:25 | PDOC.CPN ---
- Subjective Date: 02/24/19 Time: 17:34 Interval history: The pt seen and examined. No overnight events. No cardiac complaints. - Objective Allergies/Adverse Reactions: Allergies Allergy/AdvReac Type Severity Reaction Status Date / Time No Known Allergies Allergy Unverified 02/21/19 11:37 Visit Medications: Current Medications Acetaminophen (Tylenol) 650 mg PO Q4H PRN PRN Reason: Headache/Fever/Mild Pain (1-3) Last Admin: 02/24/19 16:09 Dose: 650 mg Carvedilol (Coreg) 12.5 mg PO BID-WM [facility] Last Admin: 02/24/19 16:09 Dose: 12.5 mg Ergocalciferol (Drisdol) 1.25 mg PO Q7DAYS [facility] Last Admin: 02/24/19 09:00 Dose: 1.25 mg Fluticasone Propionate (Flonase Nasal Cowen) 2 gm NASAL BID [facility] Last Admin: 02/24/19 09:00 Dose: Not Given Heparin Sodium (Porcine) (Heparin) 5,000 units SC BID [facility] Last Admin: 02/24/19 08:52 Dose: 5,000 units Sodium Bicarbonate 75 meq/ (Sodium Chloride) 1,075 mls @ 150 mls/hr IV INF [facility] Last Admin: 02/24/19 09:01 Dose: 1,075 mls Magnesium Oxide (Magnesium Oxide) 400 mg PO BID [facility] Last Admin: 02/24/19 08:51 Dose: 400 mg Ondansetron HCl (Zofran Odt) 4 mg PO Q6H PRN PRN Reason: Nausea/Vomiting Sodium Bicarbonate (Bicarbonate, Sodium) 650 mg PO BID [facility] Last Admin: 02/24/19 08:50 Dose: 650 mg Tamsulosin HCl (Flomax) 0.4 mg PO DAILY [facility] Last Admin: 02/24/19 08:51 Dose: 0.4 mg Vital Signs & Weight: Vital Signs Temp Pulse Resp BP Pulse Ox 02/24/19 15:20 98.5 F 86 16 143/83 H 100 02/24/19 11:35 98.6 F 70 16 150/88 H 100 02/24/19 07:55 99.2 F 71 16 173/97 H 100 Weight 138 lb 8 oz - Physical Exam General: alert & oriented x3 HEENT: mucus membranes moist Neck: supple neck Cardiac: regular rate and rhythm, S1/S2 Lungs: clear to auscultation Extremities: no edema - Labs Result Diagrams: 02/24/19 04:11 02/24/19 04:11 Troponin/CKMB Troponin I Less than 0.010 ng/mL (< 0.028) 02/21/19 09:40 - Telemetry Sinus rhythms and dysrhythmias: sinus rhythm - Assessment/Plan Assessment/Plan: 1. Acute on Chronic Systolic HF with EF 20-25% - his symptoms have been improving per the pt. On Coreg BID; not on MADDY/ARB due to worsening of renal function; Cont. diuretic and re-eval his EF and possibl cath if no improvement of EF 2. Obstructive Uropathy with elevated PSA - managed by urologist 3. EMILY vs CKD? - improving slowly; on bicarb 15ml/h; managed by yarn washer 4. HTN - stable 5. anemia 6. Hyperkalemia - improved MAR reviewed * Echo on 02/22/2019 with EF 2-25%, mild MR, trace TR and mod-severely dilated LA Pt. seen and eval. by me. I agree with the A/P by the ACID CUTTER.He is feeling better and the renal function is improving. Chest clear. RRR. gjm
--- NOTE | 2019-02-24 17:43 | CON ---
DATE OF CONSULTATION: 02/24/2019 REASON FOR CONSULTATION: Urinary retention and hydronephrosis. REQUESTING PHYSICIAN: Huma Bal MD HISTORY OF PRESENT ILLNESS: Mr. Hatch is a 63-year-old male with no past urologic history, who was sent to the emergency department after abnormal labs were obtained by his primary care physician. The patient previously thought he was in good health. He recently established care with one of the indigent clinics in [place] [facility] and had an evaluation. The patient had a laboratory work performed, and this demonstrated a significantly elevated potassium, creatinine, PSA, and BNP; at that point, he was sent to the emergency department. Over the past 6 months, he has had progressive voiding difficulty. He reports having to strain to urinate, extreme hesitancy, and weak stream and feeling of incomplete bladder emptying. The patient was recently started on tamsulosin, 4 days ago, and feels that this helped the caliber of the urine stream. No gross hematuria. Denies any chest pain or shortness of breath. He reports a family history of prostate cancer, although he is unsure who exactly had prostate cancer. In the emergency department, he had a bolus of fluid, was given Kayexalate, insulin, and calcium chloride. A Hernandez catheter was placed. In the interim, a renal ultrasound was performed, which demonstrated mild bilateral hydroureteronephrosis and a decompressed bladder with Hernandez catheter. The patient's creatinine has improved and is currently 3.29. At admission, his creatinine was 4.65. Urine output has been good. REVIEW OF SYSTEMS: Full 12-point review of systems was performed and is negative other than that mentioned in HPI. PAST MEDICAL HISTORY: Hypertension, BPH. PAST SURGICAL HISTORY: Some type of jaw surgery. FAMILY HISTORY: Prostate cancer. SOCIAL HISTORY: No alcohol, tobacco, or illicit drugs. ALLERGIES: NO KNOWN DRUG ALLERGIES. HOME MEDICATIONS: 1. Carvedilol. 2. Lisinopril. 3. Tamsulosin. PHYSICAL EXAMINATION: VITAL SIGNS: Temperature 98.5, pulse 86, respirations 16, oxygen saturation 100% on room air, and blood pressure 143/83. GENERAL: He is alert and oriented x3. No apparent distress. HEENT: Normocephalic, atraumatic. NECK: Supple. No masses or lymphadenopathy. CARDIOVASCULAR: Regular rate and rhythm. PULMONARY: Breathing unlabored. ABDOMEN: Soft, nontender/nondistended. No masses or organomegaly. No suprapubic tenderness to palpation. No CVA tenderness. GENITOURINARY: Normal uncircumcised penis without concerning lesions. Scrotum normal. Testes atrophied bilaterally, but otherwise normal. Hernandez catheter is in place, draining clear yellow urine. EXTREMITIES: Warm and well perfused. Mild lower extremity edema. LABORATORY DATA: Hemoglobin 8.7, hematocrit 25.4. Urine negative. Sodium 138, potassium 4.3, chloride 104, bicarb 22, BUN 42, and creatinine 3.29. This is down from 4.27. Renal ultrasound from 02/22/2019, demonstrates mild bilateral hydroureteronephrosis down to the bladder. ASSESSMENT: A 63-year-old male with multiple acute medical problems including urinary retention likely secondary to benign prostatic hypertrophy, acute kidney injury, possibly on chronic kidney disease. PLAN: I reviewed urinary retention with the patient in detail. I discussed possible etiologies of this. He likely has some degree of bladder outlet obstruction from BPH. The patient's creatinine is improving with Hernandez catheter in place. He is currently on tamsulosin. Recommend continuing this as an outpatient. The patient will need outpatient evaluation for this likely consisting of cystoscopy. He may end up needing some type of BPH procedure in the future as an outpatient for his bladder outlet obstruction. Please schedule follow up with Urology in the short term after his discharge. Job ID: [id number]
[2019-02-25] MEDS: Sodium Bicarbonate 75 MEQ in Sodium Chloride 0.45% 1,000 ML IV SCH (01:08)
[2019-02-25 05:18] LABS: Albumin 3.5 g/dL (3.4-4.8); Anion Gap 13 mmol/L (10-20); BUN (Urea Nitrogen) 43 mg/dL (8.4-25.7); BUN/Creatinine Ratio 14.33; Calc. Creatinine Clearance 22 mL/min (70-130); Calcium 9.1 mg/dL (7.8-10.44); Carbon Dioxide 28 mmol/L (23-31); Chloride 102 mmol/L (98-107); Estimated GFR-MDRD 26; Glucose 95 mg/dL (80-115); Phosphorus 3.7 mg/dL (2.3-4.7); Potassium 4.6 mmol/L (3.5-5.1); Sodium 138 mmol/L (136-145)
--- NOTE | 2019-02-25 06:22 | PDOC.FM ---
- Subjective Subjective: Doing well this morning, difficulty with sleep just due to comfort but otherwise no concerns or complaints. Denies any fever/chills, n/v, abd pain. Spoke with urology yesterday, understands plan. No return of LE edema, no SOB/ CP. - Objective MAR Reviewed: Yes Vital Signs & Weight: Vital Signs (12 hours) Temp Pulse Resp BP Pulse Ox 02/25/19 04:00 98.1 F 72 20 139/86 100 02/24/19 23:49 73 134/86 02/24/19 19:13 98.4 F 79 16 151/83 H 98 Weight Weight 62.823 kg I&O: 02/23/19 02/24/19 02/25/19 06:59 06:59 06:59 Intake Total 3020 4180 4475 Output Total 5150 3550 5475 Balance -2130 630 -1000 Result Diagrams: 02/24/19 04:11 02/25/19 04:23 EKG Reviewed by me: Yes (Tele: NSR) Phys Exam - Physical Examination Constitutional: NAD (resting comfortably, in good spirits) HEENT: moist MMs Neck: supple Respiratory: no wheezing, no rales, no rhonchi, clear to auscultation bilateral Cardiovascular: RRR, no significant murmur, no rub Gastrointestinal: soft, non-tender, no distention, positive bowel sounds Hernandez in place - pink tinged urine, less pink than previously Musculoskeletal: no edema, pulses present Neurological: non-focal, moves all 4 limbs Psychiatric: normal affect, A&O x 3 Dx/Plan (1) Acute renal failure Status: Acute (2) Anemia Code(s): D64.9 - ANEMIA, UNSPECIFIED Status: Acute (3) Elevated PSA Code(s): R97.20 - ELEVATED PROSTATE SPECIFIC ANTIGEN [PSA] Status: Acute (4) Hyperkalemia Code(s): E87.5 - HYPERKALEMIA Status: Acute (5) Obstructive uropathy Code(s): N13.9 - OBSTRUCTIVE AND REFLUX UROPATHY, UNSPECIFIED Status: Acute - Plan Plan: 63yo M with h/o HTN, BPH presents from clinic with AFR and hyperkalemia 2/2 obstructive uropathy. #Acute renal failure/ATN 2/2 obstructive uropathy, improving - DEX in clinic WNL, labs showed PSA 110, K 6.8, Cr 5. Sent to ED - Cr 4.65 -> 3.00 - Hernandez in place, pink-tinged urine, conting to diuresis - Nephro consulted, added Bicarb fluids, cont to monitor renal function, apprec recs - Uro consulted, plan for OP f/u with possible cysto and BPH/prostate eval, apprec recs - Overal improving, Monitor lytes and replace as necessary - Renal US - mild hydronephrosis #Hyperkalemia, resolved - K 6.4 -> 4.6 - Given K lowering agents in ED, cont diuresis. On tele, no acute events. Monitor #HFrEF, new onset - BNP at PCP office of 3200, down to 420 here - Echo 20-25% - On Coreg 12.5mg BID. Will need Aldactone and Lisinopril if renal function improves - Strict I&O. Consult HF clinic and cardiac rehab - Cards consulted, apprec recs. Rec continued management and repeat echo in next days to weeks for eval of improvement of EF and then to pursue ischemic workup if EF does not recover #Anemia - Hb stable at 8.4 -> 8.7. No s/s of acute blood loss. VSS. - Possibly 2/2 kidney disease - Iron studies, B12, folate WNL. FOBT negative. #HTN - Uncontrolled in past, elevated on hospitalization - Holding nephrotoxic meds, increased dose of coreg yesterday - Consider norvasc for BP control if HFrEF is ruled out. Would benefit from MADDY- I if renal function improves. #Elevated PSA - Suspicious for cancer - Urology consulted, suspected BPH, will have cont OP f/u, apprec recs. Code: Full Diet: HH IVF: NaBicarb NS @ 150cc/hr DVT: Heparin PCP: JULISA Ray Disposition: Stable, admitted to tele. No acute events. Renal function improving. Hernandez in place. Nephro/Uro recs. New onset HFrEF, possibly 2/2 volume overload. Overall improving. Will cont to monitor as renal function improves. Addendum - Attending - Attending Attestation Date/Time: 02/25/19 5559 I personally evaluated the patient and discussed the management with Dr. Flores. I agree with the History, Examination, Assessment and Plan documented above with any addition or exceptions noted below. Patient continues with improved renal function. Evaluated by Urology who recommends continued Hernandez and workup outpatient. Monitor for continued recovery of renal function. Cardiology is holding off on further CHF workup until echo repeat that either confirms or refutes that diagnosis. BP better controlled today.
[2019-02-25] MEDS ORDERED: EPOETIN ALFA-EPBX (ESRD) 10,000 UNIT/ML VIAL SC SCH (07:30)
[2019-02-25] MEDS: Tamsulosin HCl 0.4 MG CAP PO SCH (08:24)
[2019-02-25] MEDS: Heparin 5,000 UNITS/ML VIAL SC SCH ×2 (08:24→20:34)
[2019-02-25] MEDS: Magnesium Oxide 400 MG TAB PO SCH ×2 (08:24→20:34)
[2019-02-25] MEDS: Carvedilol 6.25 MG TAB PO SCH ×2 (08:24→17:35)
[2019-02-25] MEDS: Iron, Sodium Ferric Gluconate 250 MG in Sodium Chloride 0.9% 100 ML IVPB SCH ×2 (08:24→20:33)
[2019-02-25] MEDS: Fluticasone Propionate Nasal Spray 16 gm Bottle NASAL SCH ×2 (08:25→20:34)
--- NOTE | 2019-02-25 11:19 | PRG ---
DATE OF SERVICE: 02/25/2019 SERVICE: Nephrology. SUBJECTIVE: A 63-year-old male seen in followup for acute kidney injury. The patient was admitted due to difficulty urination and worsening bilateral leg edema. Found to have urinary retention with obstructive uropathy. With Hernandez catheter placement, the patient developed postobstructive diuresis and leg edema has resolved. No new problem. Denied shortness of breath, chest pain, abdominal pain. He however continued to complain of intermittent left flank discomfort. Urine has cleared. OBJECTIVE: VITAL SIGNS: Temperature 99.1, pulse 81, respiratory rate 16, SpO2 of 100% on room air, blood pressure is 172/95. GENERAL: Male patient in no distress. Afebrile. Anicteric. Acyanotic. HEENT: Normocephalic, atraumatic. Oral mucosa is moist. CARDIOVASCULAR: Regular rhythm and rate with normal heart sounds 1 and 2. RESPIRATORY: Good air entry bilaterally with no obvious crackle or rhonchi or use of accessory muscles. GI: Full, soft, nontender, nondistended with normal bowel sounds. EXTREMITIES: Grossly normal looking atraumatic with no edema or erythema. UROGENITAL: Hernandez catheter is in place draining clear urine. HYDROMETER FINISHER: Conscious, alert, oriented x2 with appropriate mental status. Cranial nerves 2 through 12 are grossly intact. The patient moves all extremities. DIAGNOSTIC DATA: Renal function panel showed sodium 138, potassium 4.6, chloride 102, CO2 of 28, BUN 43, creatinine 3.0, glucose 95, calcium 9.1, phosphorus 3.7, albumin 3.5. ASSESSMENT: 1. Acute kidney injury: Due to obstructive uropathy. Inherent metabolic kidney disorder cannot be ruled out given history of NSAID use as well as no medical care in the last several years and recently found to have hypertension. 2. Presumed chronic kidney disease. 3. Bilateral hydronephrosis: Etiology is unclear. Query related to chronic bladder outlet obstruction. 4. : Resolved. 5. Bladder outlet obstruction: Now has Hernandez catheter in place. 6. Hypertension: Control is fair. 7. Metabolic acidosis: Resolved. 8. Anemia in chronic kidney disease: Iron chemistry is not consistent with iron deficiency. 9. Hypomagnesemia: Repleted. Now on supplementation. 10. Unintentional weight loss in a patient with hematuria concerning for neoplasm. Urology is following. PLAN: 1. We will discontinue IV fluid therapy. 2. We will also give IV iron as well as an erythrocyte stimulating agent. 3. We will also get repeat renal ultrasound to assess for resolution of bilateral hydronephrosis. 4. Repeat of echocardiogram is recommended given that the acute systolic dysfunction may be related to uremia as the patient has no overt evidence of heart failure despite IV fluid therapy. Further treatment to follow depending on hospital course. We will recheck renal function test in the morning. Job ID: [id number]
--- NOTE | 2019-02-25 14:50 | PDOC.CPN ---
- Subjective Date: 02/25/19 Time: 15:00 Interval history: The pt seen and examined. No overnight events. No cardiac complaints. CHF education given to the pt and family. - Objective Allergies/Adverse Reactions: Allergies Allergy/AdvReac Type Severity Reaction Status Date / Time No Known Allergies Allergy Unverified 02/21/19 11:37 Visit Medications: Current Medications Acetaminophen (Tylenol) 650 mg PO Q4H PRN PRN Reason: Headache/Fever/Mild Pain (1-3) Last Admin: 02/24/19 16:09 Dose: 650 mg Carvedilol (Coreg) 12.5 mg PO BID-[facility] Last Admin: 02/25/19 08:24 Dose: 12.5 mg Ergocalciferol (Drisdol) 1.25 mg PO Q7DAYS [facility] Last Admin: 02/24/19 09:00 Dose: 1.25 mg Fluticasone Propionate (Flonase Nasal [place]) 2 gm NASAL BID [facility] Last Admin: 02/25/19 08:25 Dose: Not Given Heparin Sodium (Porcine) (Heparin) 5,000 units SC BID [facility] Last Admin: 02/25/19 08:24 Dose: 5,000 units Ferric Sodium Gluconate Complex 250 mg/ Sodium Chloride 120 mls @ 60 mls/hr IVPB Q12HR [facility] Stop: 02/25/19 21:01 Last Admin: 02/25/19 08:24 Dose: 120 mls Magnesium Oxide (Magnesium Oxide) 400 mg PO BID [facility] Last Admin: 02/25/19 08:24 Dose: 400 mg Ondansetron HCl (Zofran Odt) 4 mg PO Q6H PRN PRN Reason: Nausea/Vomiting Tamsulosin HCl (Flomax) 0.4 mg PO DAILY [facility] Last Admin: 02/25/19 08:24 Dose: 0.4 mg Vital Signs & Weight: Vital Signs Temp Pulse Resp BP Pulse Ox 02/25/19 12:00 99.4 F 75 20 123/74 100 02/25/19 08:17 99.1 F 81 16 172/95 H 100 02/25/19 04:00 98.1 F 72 20 139/86 100 Weight 138 lb 8 oz - Physical Exam General: alert & oriented x3 Neck: supple neck Cardiac: regular rate and rhythm, S1/S2 Lungs: clear to auscultation - Labs Result Diagrams: 02/24/19 04:11 02/25/19 04:23 Troponin/CKMB Troponin I Less than 0.010 ng/mL (< 0.028) 02/21/19 09:40 - Telemetry Sinus rhythms and dysrhythmias: sinus rhythm - Assessment/Plan Assessment/Plan: 1. Acute on Chronic Systolic HF with EF 20-25% - his symptoms have been improving per the pt. On Coreg BID; not on MADDY/ARB due to worsening of renal function; Cont. diuretic and re-eval his EF and possible cath if no improvement of EF 2. Obstructive Uropathy with elevated PSA - managed by urologist 3. EMILY vs CKD? - improving slowly; off bicarb IV; managed by professor of history 4. HTN - stable 5. anemia - Iron infusion today 6. Hyperkalemia - improved MAR reviewed * Echo on 02/22/2019 with EF 2-25%, mild MR, trace TR and mod-severely dilated LA Pt. seen and eval. by me. I agree with the A/P by the LEGAL RECRUITER. Chest clear. RRR. Plan for repeat echo in 2-4 weeks. ellie
[2019-02-25] MEDS: Acetaminophen 325 MG TAB PO PRN (18:45)
--- NOTE | 2019-02-25 20:21 | ULT ---
ULTRASOUND RETROPERITONEUM COMPLETE: (RENAL) DATE: 02/25/2019 HISTORY: Follow-up bilateral hydronephrosis in 63-year-old male with acute kidney injury. COMPARISON: 02/22/2019 FINDINGS: The previously demonstrated mild right hydronephrosis has resolved. There is been interval improvement in the previously demonstrated mild left hydronephrosis, now minim al. Right kidney: 10.5 x 4 x 4.5 cm. Left kidney: 10 x 5.5 x 4.5 cm. Hernandez catheter balloon remains within urinary bladder which has very small volume, but slightly more fluid in the lumen than on prior study. Again noted is the diffuse mural thickening which could be due to nearly empty state, or diffuse cystitis or less likely bladder cancer. With the presence of so me fluid, bilateral ureteral jets are now demonstrated. IMPRESSION: interval resolution of the right hydronephrosis and interval improvement in the now minimal left hyd ronephrosis.
[2019-02-26] MEDS: Acetaminophen 325 MG TAB PO PRN ×3 (01:07→20:51)
[2019-02-26 04:28] LABS: Albumin 3.8 g/dL (3.4-4.8); Anion Gap 13 mmol/L (10-20); BUN (Urea Nitrogen) 39 mg/dL (8.4-25.7); BUN/Creatinine Ratio 13.22; Calc. Creatinine Clearance 23 mL/min (70-130); Calcium 9.4 mg/dL (7.8-10.44); Carbon Dioxide 24 mmol/L (23-31); Chloride 104 mmol/L (98-107); Estimated GFR-MDRD 26; Glucose 106 mg/dL (80-115); Phosphorus 3.9 mg/dL (2.3-4.7); Potassium 4.4 mmol/L (3.5-5.1); Sodium 137 mmol/L (136-145)
[2019-02-26] MEDS ORDERED: Baclofen 10 MG TAB PO SCH ×2 (05:03→09:00)
[2019-02-26] MEDS ORDERED: Fluticasone Propionate Nasal Spray 16 gm Bottle NASAL PRN (06:01)
--- NOTE | 2019-02-26 06:03 | PDOC.FM ---
- Subjective Subjective: Doing well this morning, no acute events overnight. Tolerating PO well. No N/v. Has small back muscle spasms, just received baclofen. No fever/chills, CP, SOB or return of LE edema. - Objective MAR Reviewed: Yes Vital Signs & Weight: Vital Signs (12 hours) Temp Pulse Resp BP Pulse Ox 02/26/19 04:10 98.5 F 72 16 152/75 H 100 02/25/19 19:51 99.1 F 69 18 150/90 H 100 Weight Weight 62.823 kg I&O: 02/24/19 02/25/19 02/26/19 06:59 06:59 06:59 Intake Total 4180 1537 265 Output Total 3940 4968 2417 Balance 946 -9835 -6373 Result Diagrams: 02/24/19 04:11 02/26/19 03:49 Phys Exam - Physical Examination Constitutional: NAD (resting comfortably in bed, in good spirits) HEENT: moist MMs Neck: supple Respiratory: no wheezing, no rales, no rhonchi, clear to auscultation bilateral Cardiovascular: RRR, no significant murmur, no rub Gastrointestinal: soft, non-tender, no distention, positive bowel sounds Darby - blood-tinged urine Musculoskeletal: no edema, pulses present Neurological: non-focal, moves all 4 limbs Psychiatric: normal affect, A&O x 3 Dx/Plan (1) Acute renal failure Status: Acute (2) Anemia Code(s): D64.9 - ANEMIA, UNSPECIFIED Status: Acute (3) Elevated PSA Code(s): R97.20 - ELEVATED PROSTATE SPECIFIC ANTIGEN [PSA] Status: Acute (4) Hyperkalemia Code(s): E87.5 - HYPERKALEMIA Status: Acute (5) Obstructive uropathy Code(s): N13.9 - OBSTRUCTIVE AND REFLUX UROPATHY, UNSPECIFIED Status: Acute - Plan Plan: 63yo M with h/o HTN, BPH presents from clinic with AFR and hyperkalemia 2/2 obstructive uropathy now improving. #Acute renal failure/ATN 2/2 obstructive uropathy, improving - DEX in clinic WNL, labs showed PSA 110, K 6.8, Cr 5. Sent to ED - Cr 4.65 -> 2.95 - Darby in place, blood-tinged urine, cont to diuresis. O 2375 in past 24 hours. - Nephro consulted, stopped fluids, repeat renal US, IV iron and Epo, cont to monitor renal function, apprec recs - Uro consulted, plan for OP f/u with possible cysto and BPH/prostate eval, apprec recs - Overal improving, Monitor lytes and replace as necessary - Renal US - mild hydronephrosis. Repeat US improved hydronephrosis. #Hyperkalemia, resolved - K 6.4 -> 4.6. Given K lowering agents in ED, cont diuresis. On tele, no acute events. Monitor #HFrEF, new onset - BNP at PCP office of 3200, down to 420 here - Echo 20-25% - On Coreg 12.5mg BID. Consider Aldactone and Lisinopril if renal function improves - Strict I&O. Consult HF clinic and cardiac rehab - Cards consulted, apprec recs. Rec continued management and repeat echo in 2-3 weeks for eval of improvement of EF and then to pursue ischemic workup if EF does not recover - Likely 2/2 volume overload from obstructive uropathy and anticipate recovery of EF #Anemia - Hb stable at 8.4 -> 8.7. No s/s of acute blood loss. VSS. - Possibly 2/2 kidney disease - Iron studies, B12, folate WNL. FOBT negative. - IV iron and Epo given #HTN - Uncontrolled in past, elevated on hospitalization - Holding nephrotoxic meds, increased dose of coreg. - Consider norvasc for BP control if HFrEF is ruled out. Would benefit from MADDY- I if renal function improves. #Elevated PSA - Suspicious for cancer - Urology consulted, suspected BPH, will have cont OP f/u, apprec recs. Code: Full Diet: HH IVF: SL DVT: Heparin PCP: JULISA Ray Disposition: Stable, admitted to tele. No acute events. Renal function improving. Darby in place. New onset HFrEF, likely 2/2 volume overload. Overall improving. Will cont to monitor as renal function improves. Anticipate discharge today vs tomorrow pending Nephro recs and clinical status. Addendum - Attending - Attending Attestation Date/Time: 02/26/19 1037 I personally evaluated the patient and discussed the management with Dr. Flores. I agree with the History, Examination, Assessment and Plan documented above with any addition or exceptions noted below. Patient overall clinically improved and stable for discharge from renal standpoint. He has had sudden onset of n/v this morning and we will reassess this in the next few hours. He has also had some increased bleeding from his darby catheter, will discuss with urology. Possible discharge later today with further outpatient monitoring and workup.
[2019-02-26] MEDS: Amlodipine 5 MG TAB PO SCH (08:11)
[2019-02-26] MEDS: Carvedilol 6.25 MG TAB PO SCH (08:11)
[2019-02-26] MEDS: Magnesium Oxide 400 MG TAB PO SCH ×2 (08:11→20:51)
[2019-02-26] MEDS: Tamsulosin HCl 0.4 MG CAP PO SCH (08:11)
--- NOTE | 2019-02-26 08:22 | PRG ---
DATE OF SERVICE: 02/26/2019 SERVICE: Nephrology. SUBJECTIVE: A 63-year-old male seen in followup for acute kidney injury. The patient was found to have obstructive uropathy associated with postobstructive diuresis following catheter placement. Feeling better. Oral intake as well as appetite has improved markedly. Denied nausea, vomiting, or change in bowel habit. However, continued to complain of left lower back through flank pain/spasm. No fever or chills. IV fluid therapy was discontinued yesterday. OBJECTIVE: VITAL SIGNS: Temperature 98.5, pulse 72, respiratory rate 16, SpO2 100% on room air, blood pressure 152/75. I and O in the last 24 hours showed total intake of 1300 with output of 3125 with negative balance of 1825. GENERAL: Male patient, in no distress. Afebrile. Anicteric. Acyanotic. HEENT: Normocephalic, atraumatic. Oral mucosa is moist. CARDIOVASCULAR: Regular rhythm and rate. Normal heart sounds one and two. RESPIRATORY: Good air entry bilaterally with no crackle or rhonchi or use of accessory muscles. GI: Full, soft, nontender, nondistended with normal bowel sounds. UROGENITAL: Hernandez catheter is in place draining urine. Otherwise, scrotum and penis are unremarkable. EXTREMITIES: Grossly normal looking, atraumatic with no edema or erythema. MIXING PLANT OPERATOR: Conscious and alert, oriented x3 with appropriate mental status. Cranial nerves 2 through 12 are grossly intact. DIAGNOSTIC DATA: Renal function panel today showed sodium 137, potassium 4.4, chloride 104, CO2 of 24, BUN 39, creatinine 2.95, glucose 106, calcium 9.4, phosphorus 3.9, albumin 3.8. ASSESSMENT: 1. Acute kidney injury: Due to obstructive uropathy. Inherent medical pathology could not be ruled out given chronic use of NSAIDs. Creatinine is trending down to 2.95 from peak of 5.53 on admission. Even with discontinuation of IV fluid BUN and creatinine are trending downwards. 2. Presumed chronic kidney disease of unclear etiology and stage. 3. Secondary hyperparathyroidism. 4. Vitamin D deficiency. 5. Anemia in chronic kidney disease. 6. Bilateral leg edema, resolved. This is due to chronic kidney disease as well as acute systolic heart failure. Currently resolved with post obstructive diuresis. 7. Acute systolic heart failure: Etiology is unclear. May be related to uremic encephalopathy or uremic cardiomyopathy. The patient, however, has no features of CHF at this time. Cardiology is recommending repeat echocardiogram to reassess cardiac function. 8. Hypertension: Control is suboptimal. PLAN: 1. We will start low-dose amlodipine to get adequate BP control. We will continue current dose of carvedilol mg p.o. b.i.d. We will, however, avoid RAAS vicky at this time given renal dysfunction. 2. [place] oral intake advised. 3. Repeat ultrasound show resolution of bilateral hydronephrosis which point to bladder outlet as the major culprit. 4. Disposition: The patient can be discharged from Nephrology point of view to follow up in the outpatient in 1 to 2 weeks with repeat renal function panel and CBC. Many thanks for involving us in the care of this patient. We will sign off at this time. Please call for any clarification or questions. Job ID: [id number]
[2019-02-26] MEDS ORDERED: Ondansetron PF 4 MG/2 ML Vial SLOW IVP PRN (10:05)
[2019-02-26] MEDS: Heparin 5,000 UNITS/ML VIAL SC SCH ×2 (10:12→20:52)
[2019-02-26 11:24] LABS: #Eosinphils 0.1 thou/uL (0.0-0.7); #Lymphocytes 0.6 thou/uL (1.20-3.40); #Monocytes 0.5 thou/uL (0.11-0.59); #Neutrophils 5.4 thou/uL (1.40-6.50); %Basophils 0.2 % (0.0-1.0); %Eosinophils 1.2 % (0.0-10.0); %Lymphocytes 8.9 % (21.0-51.0); %Monocytes 8.2 % (0.0-10.0); %Neutrophils 81.6 % (42.0-75.0); Hemoglobin 9.5 g/dL (14.0-18.0); Mean Corpuscular HGB CONC 34.2 g/dL (32.0-36.0); Mean Corpuscular Hemoglobin 33.4 pg (27.0-31.0); Mean Corpuscular Volume 97.6 fL (78.0-98.0); Mean Platelet Volume 7.2 fL (7.4-10.4); Platelet Count 206 thou/uL (130-400); Red Blood Cell (RBC) Count 2.86 mill/uL (4.70-6.10); White Blood Cell (WBC) Count 6.6 thou/uL (4.8-10.8)
--- NOTE | 2019-02-26 12:32 | PDOC.CPN ---
- Subjective Date: 02/26/19 Time: 12:33 Interval history: The pt seen and examined. No overnight events. No cardiac complaints. - Objective Allergies/Adverse Reactions: Allergies Allergy/AdvReac Type Severity Reaction Status Date / Time No Known Allergies Allergy Unverified 02/21/19 11:37 Visit Medications: Current Medications Acetaminophen (Tylenol) 650 mg PO Q4H PRN PRN Reason: Headache/Fever/Mild Pain (1-3) Last Admin: 02/26/19 01:07 Dose: 650 mg Amlodipine Besylate (Norvasc) 2.5 mg PO DAILY [facility] Last Admin: 02/26/19 08:11 Dose: 2.5 mg Carvedilol (Coreg) 25 mg PO BID-[facility] Ergocalciferol (Drisdol) 1.25 mg PO Q7DAYS [facility] Last Admin: 02/24/19 09:00 Dose: 1.25 mg Fluticasone Propionate (Flonase Nasal [place]) 2 gm NASAL BID PRN PRN Reason: Nasal Congestion Heparin Sodium (Porcine) (Heparin) 5,000 units SC BID [facility] Last Admin: 02/26/19 10:12 Dose: 5,000 units Magnesium Oxide (Magnesium Oxide) 400 mg PO BID [facility] Last Admin: 02/26/19 08:11 Dose: 400 mg Ondansetron HCl (Zofran Odt) 4 mg PO Q6H PRN PRN Reason: Nausea/Vomiting Ondansetron HCl (Zofran) 4 mg SLOW IVP Q6H PRN PRN Reason: Nausea/Vomiting Last Admin: 02/26/19 10:10 Dose: 4 mg Tamsulosin HCl (Flomax) 0.4 mg PO DAILY [facility] Last Admin: 02/26/19 08:11 Dose: 0.4 mg Vital Signs & Weight: Vital Signs Temp Pulse Resp BP Pulse Ox 02/26/19 11:05 99.3 F 88 18 114/74 99 02/26/19 08:11 77 02/26/19 08:10 100 02/26/19 08:09 99.2 F 77 18 157/97 H 100 02/26/19 04:10 98.5 F 72 16 152/75 H 100 Weight 136 lb - Physical Exam General: alert & oriented x3 HEENT: mucus membranes moist Neck: supple neck Cardiac: regular rate and rhythm, S1/S2 Lungs: clear to auscultation Neuro: cranial nerve 2-12 intact Extremities: no edema Musculoskeletal: normal range of motion - Labs Result Diagrams: 02/26/19 11:13 02/27/19 07:22 Troponin/CKMB Troponin I Less than 0.010 ng/mL (< 0.028) 02/21/19 09:40 - Telemetry Sinus rhythms and dysrhythmias: sinus rhythm - Assessment/Plan Assessment/Plan: 1. Acute on Chronic Systolic HF with EF 20-25% - stable with RA; On Coreg BID; not on MADDY/ARB due to worsening of renal function; Cont. diuretic and re-eval his EF and possible cath if no improvement of EF 2. Obstructive Uropathy with elevated PSA - managed by urologist 3. EMILY vs CKD? - improving slowly; off bicarb IV; managed by sanitary landfill supervisor 4. HTN - stable 5. anemia - Iron infusion today 6. Hyperkalemia - improved 7. Hematuria - managed by PCP MAR reviewed * Echo on 02/22/2019 with EF 2-25%, mild MR, trace TR and mod-severely dilated LA * Plan for repeat echo in 2-4 weeks. gjm Pt. seen and eval. by me. I agree with the A/P by the RADIO TALK SHOW HOST. The echo done today to re-evaluate the LV function indicates an EF of 35-40%. Improved. Hopefully it will comtinue to improve.. Chest clear. RRR.
[2019-02-26] MEDS: Carvedilol 25 MG TAB PO SCH (16:45)
--- NOTE | 2019-02-27 06:08 | PDOC.FM ---
- Subjective Subjective: Doing well this morning, no acute events overnight. Ambulating around room without difficulty. Tolerating PO intake, Had episode of n/v yesterday after getting up and washing off, pt states he had not eaten that morning and may have gotten overheated, no other events. Denies any fever/chills, CP, SOB. Hernandez in place. Eager for discharge. - Objective MAR Reviewed: Yes Vital Signs & Weight: Vital Signs (12 hours) Temp Pulse Resp BP Pulse Ox 02/27/19 04:06 98.5 F 88 18 143/81 H 100 02/26/19 23:32 99.9 F H 02/26/19 20:37 100 F H 86 18 115/72 99 Weight Weight 61.689 kg I&O: 02/25/19 02/26/19 02/27/19 06:59 06:59 06:59 Intake Total 4475 1300 1380 Output Total 5441 3125 2750 Balance -7237 -0622 -0092 Result Diagrams: 02/26/19 11:13 02/27/19 07:22 Phys Exam - Physical Examination Constitutional: NAD (resting comfortably, pleasant, good spirits) HEENT: moist MMs Neck: supple Respiratory: no wheezing, no rales, no rhonchi, clear to auscultation bilateral Cardiovascular: RRR, no significant murmur, no rub Gastrointestinal: soft, non-tender, no distention, positive bowel sounds Hernandez in place - pink-tinged urine Musculoskeletal: no edema, pulses present Neurological: non-focal, moves all 4 limbs Psychiatric: normal affect, A&O x 3 Dx/Plan (1) Acute renal failure Status: Acute (2) Anemia Code(s): D64.9 - ANEMIA, UNSPECIFIED Status: Acute (3) Elevated PSA Code(s): R97.20 - ELEVATED PROSTATE SPECIFIC ANTIGEN [PSA] Status: Acute (4) Hyperkalemia Code(s): E87.5 - HYPERKALEMIA Status: Acute (5) Obstructive uropathy Code(s): N13.9 - OBSTRUCTIVE AND REFLUX UROPATHY, UNSPECIFIED Status: Acute - Plan Plan: 63yo M with h/o HTN, BPH presents from clinic with AFR and hyperkalemia 2/2 obstructive uropathy now improving. #Acute renal failure/ATN 2/2 obstructive uropathy, improving - DEX in clinic WNL, labs showed PSA 110, K 6.8, Cr 5. Sent to ED - Cr 4.65 -> 2.95 - Hernandez in place, pink-tinged urine, cont to diuresis. O 3125 in past 24 hours. - Nephro consulted, stopped fluids, repeat renal US, IV iron and Epo, cont to monitor renal function, ok to dischage with OP f/u, apprec recs - Uro consulted, plan for OP f/u with possible cysto and BPH/prostate eval, apprec recs - Overal improving, Monitor lytes and replace as necessary - Renal US - mild hydronephrosis. Repeat US improved hydronephrosis. #Hyperkalemia, resolved - K 6.4 -> 4.6. Given K lowering agents in ED, cont diuresis. On tele, no acute events. Monitor #HFrEF, new onset, likely 2/2 volume overload from obstructive uropathy - BNP at PCP office of 3200, down to 420 here - Echo 20-25% - On Coreg 25mg BID. Consider Aldactone and Lisinopril if renal function improves - Strict I&O. Consult HF clinic and cardiac rehab - Cards consulted, apprec recs. Rec continued management and repeat echo in 2-3 weeks for eval of improvement of EF and then to pursue ischemic workup if EF does not recover - Likely 2/2 volume overload from obstructive uropathy and anticipate recovery of EF #Anemia - Hb stable at 8.4 -> 9.5. No s/s of acute blood loss. VSS. - Possibly 2/2 kidney disease - Iron studies, B12, folate WNL. FOBT negative. - IV iron and Epo given by Nephro #HTN - Uncontrolled in past, elevated on hospitalization - Holding nephrotoxic meds, increased dose of coreg. - Consider norvasc for BP control if HFrEF is ruled out. Would benefit from MADDY- I if renal function improves. #Elevated PSA - Suspicious for cancer - Urology consulted, suspected BPH, will have cont OP f/u, apprec recs. Code: Full Diet: HH IVF: SL DVT: Heparin PCP: JULISA Ray Disposition: Stable, admitted to tele. No acute events. Renal function improving. Hernandez in place. New onset HFrEF, likely 2/2 volume overload. Overall improving. Will cont to monitor as renal function improves. Anticipate discharge today vs tomorrow pending Nephro recs and clinical status. Will need close OP f/u. Addendum - Attending - Attending Attestation Date/Time: 02/27/19 1040 I personally evaluated the patient and discussed the management with Dr. Flores. I agree with the History, Examination, Assessment and Plan documented above with any addition or exceptions noted below. Patient overall feeling well. Renal function with some decline overnight, now back on IVF. Will discuss with Nephro but possible d/c later today and labs normalizing and good UOP, will need close follow up outpt.
[2019-02-27 08:03] LABS: Anion Gap 15 mmol/L (10-20); BUN (Urea Nitrogen) 43 mg/dL (8.4-25.7); Calc. Creatinine Clearance 19 mL/min (70-130); Calcium 9.9 mg/dL (7.8-10.44); Carbon Dioxide 23 mmol/L (23-31); Chloride 100 mmol/L (98-107); Estimated GFR-MDRD 22; Glucose 103 mg/dL (80-115); Potassium 4.3 mmol/L (3.5-5.1); Sodium 134 mmol/L (136-145)
[2019-02-27] MEDS ORDERED: Sodium Chloride 0.9% 1,000 ML IV SCH (08:45)
[2019-02-27] MEDS: Magnesium Oxide 400 MG TAB PO SCH ×2 (09:43→21:27)
[2019-02-27] MEDS: Amlodipine 5 MG TAB PO SCH (09:43)
[2019-02-27] MEDS: Sodium Bicarbonate Tab 325 MG TAB PO SCH ×2 (09:44→21:27)
[2019-02-27] MEDS: Tamsulosin HCl 0.4 MG CAP PO SCH (09:44)
[2019-02-27] MEDS: Heparin 5,000 UNITS/ML VIAL SC SCH ×2 (09:44→21:27)
[2019-02-27] MEDS: Carvedilol 25 MG TAB PO SCH ×2 (09:44→17:14)
[2019-02-27] MEDS: Sodium Chloride 0.9% 1,000 ML IV SCH ×3 (09:46→21:28)
--- NOTE | 2019-02-27 10:50 | PRG ---
DATE OF SERVICE: 02/27/2019 SERVICE: Nephrology. SUBJECTIVE: A 63-year-old male seen in followup for acute kidney injury. The patient was initially admitted due to worsening difficulty urination as well as bilateral leg edema. The patient improved with Hernandez catheter placement and IV fluid with creatinine trending downwards. However, he had nausea and vomiting associated with poor oral intake yesterday. The patient is desirous of going home. OBJECTIVE: VITAL SIGNS: Temperature 99.7, pulse 79, respiratory rate 18, SpO2 of 99% on room air, blood pressure is 133/83. GENERAL: Male patient, in no obvious distress. Afebrile. Anicteric. Acyanotic. HEENT: Normocephalic, atraumatic. CARDIOVASCULAR: Regular rhythm and rate. Normal heart sounds one and two. RESPIRATORY: Good air entry bilaterally with no crackle or rhonchi or use of accessory muscles. GI: Full, soft, nontender, nondistended with normal bowel sounds. UROGENITAL: Hernandez catheter is in place draining some urine. EXTREMITIES: Grossly normal looking, atraumatic with no obvious edema or erythema. VENDETTE: Conscious and alert, oriented x3 with appropriate mental status. Intake and output, in the last 24 hours, the patient took in 1280 mL with output of a 3125 with negative balance of 1825. DIAGNOSTIC DATA: BMP showed sodium 134, potassium 4.3, chloride 100, CO2 of 23, BUN 43, creatinine 3.40. Glucose is 103, calcium is 9.9. Of note, yesterday BUN was 39 and creatinine was 2.95. ASSESSMENT: 1. Acute kidney injury: Creatinine is up today to 3.4 from 2.95 yesterday. It is volume mediated. The patient had both nausea and vomiting as well as poor oral intake. I and O showed approximately 2 L negative fluid balance. 2. Volume depletion. 3. Chronic kidney disease of unclear stage and etiology. 4. Obstructive uropathy due to bladder outlet obstruction. 5. Bilateral hydronephrosis, due to bladder outlet obstruction, resolved. 6. Hypertension: Control is acceptable. 7. Acute systolic dysfunction: Most likely due to uremia. Repeat echocardiogram showed improvement in systolic function. PLAN: We will give normal saline 1 L bolus followed by 125 mL/h. We will repeat renal function tomorrow morning. [place] oral intake is advised. We will cancel discharge at this point as patient is volume depleted. Further treatment to follow depending on hospital course. Job ID: [id number]
--- NOTE | 2019-02-27 11:10 | PRG ---
DATE OF SERVICE: 02/27/2019 CONSULTS: 1. Cardiology, Dr. Mcintosh. 2. Urology, Dr. Olmstead. 3. Nephrology, Dr. Chandler. PROCEDURES: 1. Hernandez placement on 02/21. 2. Chest x-ray on 02/21/2019, demonstrating no acute cardiopulmonary process. 3. Renal ultrasound on 02/22/2019, demonstrating mild bilateral hydronephrosis. 4. Bilateral venous Doppler ultrasound on 02/22/2019, demonstrating no DVT. 5. Renal ultrasound on 02/25/2019, demonstrating interval resolution of right hydronephrosis and interval improvement in the now minimal left hydronephrosis. 6. Echocardiogram on 02/22/2019 demonstrating ejection fraction of 20% to 25%. Left ventricular size is moderately increased. PRIMARY DIAGNOSES: 1. Acute renal failure and acute tubular necrosis secondary to obstructive uropathy. 2. Heart failure, reduced ejection fraction, new onset, likely secondary to volume overload from his uropathy. SECONDARY DIAGNOSES: 1. Hyperkalemia, resolved. 2. Anemia. 3. Hypertension. 4. Elevated prostate-specific antigen. DISCHARGE MEDICATIONS: 1. Flomax 0.4 mg p.o. daily. 2. Coreg 25 mg p.o. b.i.d. 3. Ergocalciferol 1.25 mg p.o. q.7 days. DISCONTINUED MEDICATIONS: 1. Lisinopril 10 mg p.o. daily. 2. Carvedilol 3.125 mg p.o. b.i.d. HISTORY OF PRESENT ILLNESS AND HOSPITAL COURSE: The patient is a 63-year-old male, who had been lost to medical followup for the previous 5 years, who presented to the ED after abnormal labs from his PCP. The patient was found to have an elevated potassium, creatinine, PSA, BMP, and on questioning noted that he had to strain to empty his bladder over the last few weeks. He denied any chest pain, shortness of breath, nausea, vomiting, diarrhea, or headache. In the ED, he was given 1 L bolus, hydralazine, Kayexalate, insulin D50, calcium chloride, and a Hernandez catheter was placed. The patient was admitted to telemetry for further evaluation and management. 1. Acute renal failure-digital rectal exam in clinic was within normal limits. Labs from clinic showed a PSA of 110, potassium 6.8, creatinine of 5. He was sent to the ED for this. Throughout his hospitalization, his creatinine improved from 4.65 to 3.4. At the time of discharge, Hernandez was placed and continued to have high output diuresing over 3 L in the past 24 hours, the day prior to discharge. Nephrology was consulted, who initially had a renal ultrasound that showed mild bilateral hydronephrosis. A repeat renal ultrasound 2 days later showed improvement of this. He was given IV iron and Epogen and was cleared for discharge on the day of . Urology was also consulted for elevated PSA and obstructive uropathy and recommended continued Hernandez and to follow up as an outpatient for possible cysto and BPH, just prostate evaluation. His electrolytes were monitored and replaced as necessary. 2. Hyperkalemia-the patient presented with a potassium of 6.4. He was given potassium stabilization and potassium lowering medications in the ED. Potassium was trended closely, decreased to 4.6 and remained stable. Throughout most of the hospitalization, he had no acute events on telemetry and no EKG changes. 3. Heart failure, reduced ejection fraction, new onset, likely secondary to volume overload from obstructive uropathy-at PCPs office, BNP was 3200, it is down to 420 on admission. His echo showed an EF of 20% to 25%. His Coreg was up titrated to 25 mg b.i.d. Cardiology, Dr. Mcintosh was consulted, who recommended continued management and repeat echo in 2 to 3 weeks. Based on history and evaluation, it was determined the patient did not likely have ischemic heart failure with reduced ejection fraction, but likely was due to volume overloaded and recommended a repeat echo to demonstrate likely improvement of his ejection fraction. If the patient's ejection fraction does not improve, it is recommended the patient undergo further workup for this. Also, if the patient's ejection fraction remains low, consider the addition of Aldactone and spironolactone if renal function tolerates. 4. Anemia-the patient's hemoglobin was stable at 8.4. He had no signs of acute blood loss, likely secondary to renal disease. Iron studies, B12, folate were all within normal limits and FOBT was negative. He was given IV iron and Epogen by Nephrology and will need continued outpatient monitoring. 5. Hypertension is uncontrolled in the past. Nephrotoxic medications were held. His Coreg dose was increased with improvement of his blood pressure. Consider Norvasc in the future. If heart failure with reduced ejection fraction is confirmed and chronic, then the patient will need appropriate additional medications. 6. Elevated PSA-Urology consulted. We will have continued outpatient followup and workup. 7. At the time of discharge, the patient was doing very well, tolerating p.o. without any significant nausea or vomiting. He was ambulating in the room. Hernandez was in place and had pink-tinged urine. The patient had good urine output throughout his entire hospitalization. Discharge plan was discussed with the patient and at bedside who voiced agreement and understanding with home medications and appropriate followup. All questions were answered appropriately. 8. Disposition, stable. At the time of this dictation pt appeared to be stable for discharge, however BMP was obtained off IVF and pt was found to have worsening of renal function. It was then determined to hold the patient and restart IVF to monitor renal function prior to discharge. Nephrology continued to follow and provide recommendations. See further progress notes for more information and clinical course. Job ID: [id number] EYAL
--- NOTE | 2019-02-27 14:28 | PDOC.CPN ---
- Subjective Date: 02/27/19 Time: 14:32 Interval history: The pt seen and examined. No overnight events. No cardiac complaints. - Objective Allergies/Adverse Reactions: Allergies Allergy/AdvReac Type Severity Reaction Status Date / Time No Known Allergies Allergy Unverified 02/21/19 11:37 Visit Medications: Current Medications Acetaminophen (Tylenol) 650 mg PO Q4H PRN PRN Reason: Headache/Fever/Mild Pain (1-3) Last Admin: 02/26/19 20:51 Dose: 650 mg Amlodipine Besylate (Norvasc) 2.5 mg PO DAILY ON LICENSE OF [facility] Last Admin: 02/27/19 09:43 Dose: 2.5 mg Carvedilol (Coreg) 25 mg PO BID-[facility] Last Admin: 02/27/19 09:44 Dose: 25 mg Ergocalciferol (Drisdol) 1.25 mg PO Q7DAYS ON LICENSE OF [facility] Last Admin: 02/24/19 09:00 Dose: 1.25 mg Fluticasone Propionate (Flonase Nasal [place]) 2 gm NASAL BID PRN PRN Reason: Nasal Congestion Heparin Sodium (Porcine) (Heparin) 5,000 units SC BID ON LICENSE OF [facility] Last Admin: 02/27/19 09:44 Dose: 5,000 units Sodium Chloride (Normal Saline 0.9%) 1,000 mls @ 125 mls/hr IV .Q8H ON LICENSE OF [facility] Last Admin: 02/27/19 09:46 Dose: 1,000 mls Magnesium Oxide (Magnesium Oxide) 400 mg PO BID ON LICENSE OF [facility] Last Admin: 02/27/19 09:43 Dose: 400 mg Ondansetron HCl (Zofran Odt) 4 mg PO Q6H PRN PRN Reason: Nausea/Vomiting Ondansetron HCl (Zofran) 4 mg SLOW IVP Q6H PRN PRN Reason: Nausea/Vomiting Last Admin: 02/26/19 10:10 Dose: 4 mg Sodium Bicarbonate (Bicarbonate, Sodium) 650 mg PO BID ON LICENSE OF [facility] Last Admin: 02/27/19 09:44 Dose: 650 mg Sodium Chloride (Flush - Normal Saline) 10 ml IVF Q12HR ON LICENSE OF [facility] Sodium Chloride (Flush - Normal Saline) 10 ml IVF PRN PRN PRN Reason: Saline Flush Tamsulosin HCl (Flomax) 0.4 mg PO DAILY ON LICENSE OF [facility] Last Admin: 02/27/19 09:44 Dose: 0.4 mg Vital Signs & Weight: Vital Signs Temp Pulse Resp BP Pulse Ox 02/27/19 11:10 99.3 F 84 18 123/74 99 02/27/19 09:43 79 02/27/19 08:15 99 02/27/19 08:11 99.7 F H 79 18 133/83 99 02/27/19 04:06 98.5 F 88 18 143/81 H 100 Weight 136 lb - Physical Exam General: alert & oriented x3 HEENT: mucus membranes moist Neck: supple neck Cardiac: regular rate and rhythm, S1/S2 Lungs: clear to auscultation Neuro: cranial nerve 2-12 intact Extremities: no edema - Labs Result Diagrams: 02/26/19 11:13 02/27/19 07:22 Troponin/CKMB Troponin I Less than 0.010 ng/mL (< 0.028) 02/21/19 09:40 - Telemetry Sinus rhythms and dysrhythmias: sinus rhythm - Assessment/Plan Assessment/Plan: 1. Acute on Chronic Systolic HF with EF 20-25% - stable with RA; On Coreg BID; not on MADDY/ARB due to worsening of renal function; His 2nd non-official Echo showed EF 35-40%; 2. Obstructive Uropathy with elevated PSA - managed by urologist 3. EMILY vs CKD? - worsening this AM; managed by scouring pads supervisor 4. HTN - stable 5. anemia - Iron infusion today 6. Hyperkalemia - improved 7. Hematuria - managed by PCP MAR reviewed * Echo on 02/22/2019 with EF 20-25%, mild MR, trace TR and mod-severely dilated LA. EF02/26/2019: 35-40% * Plan for repeat echo in 2-4 weeks. gjm Pt. seen and eval. by me. I agree with the A/P by the BROILER MANAGER. Chest clear. RRR. No edema.
[2019-02-27] MEDS: Acetaminophen 325 MG TAB PO PRN (21:33)
[2019-02-28 04:53] LABS: Hemoglobin 8.4 g/dL (14.0-18.0); Mean Corpuscular HGB CONC 34.2 g/dL (32.0-36.0); Mean Corpuscular Hemoglobin 33.3 pg (27.0-31.0); Mean Corpuscular Volume 97.3 fL (78.0-98.0); Mean Platelet Volume 7.7 fL (7.4-10.4); Platelet Count 205 thou/uL (130-400); RBC Distribution Width 12.1 % (11.5-14.5); Red Blood Cell (RBC) Count 2.51 mill/uL (4.70-6.10); White Blood Cell (WBC) Count 7.5 thou/uL (4.8-10.8)
[2019-02-28 05:09] LABS: Albumin 3.5 g/dL (3.4-4.8); Anion Gap 10 mmol/L (10-20); BUN (Urea Nitrogen) 42 mg/dL (8.4-25.7); BUN/Creatinine Ratio 15.16; Calc. Creatinine Clearance 24 mL/min (70-130); Calcium 8.9 mg/dL (7.8-10.44); Carbon Dioxide 24 mmol/L (23-31); Chloride 108 mmol/L (98-107); Estimated GFR-MDRD 28; Glucose 96 mg/dL (80-115); Magnesium 1.6 mg/dL (1.6-2.6); Phosphorus 3.3 mg/dL (2.3-4.7); Potassium 4.3 mmol/L (3.5-5.1); Sodium 138 mmol/L (136-145)
[2019-02-28] MEDS: Sodium Chloride 0.9% 1,000 ML IV SCH ×2 (06:28→16:42)
--- NOTE | 2019-02-28 07:55 | PDOC.FM ---
- Subjective Subjective: Doing well this morning, no acute events overnight. Has noticed swelling at his previous IV side on the right cubital fossa. Mild erythema. Using compression dressings. No fever/chills, n/v, CP/SOB. Aware of appropriate follow up with specialists. Eager for discharge. - Objective MAR Reviewed: Yes Vital Signs & Weight: Vital Signs (12 hours) Temp Pulse Resp BP Pulse Ox 02/28/19 03:59 98.8 F 81 18 121/71 100 02/27/19 20:50 97.7 F 86 14 126/73 100 02/27/19 20:45 100 Weight Weight 61.689 kg I&O: 02/27/19 02/28/19 03/01/19 06:59 06:59 06:59 Intake Total 1380 5480 Output Total 2750 4375 Balance -1370 1105 Result Diagrams: 02/28/19 04:25 02/28/19 04:25 EKG Reviewed by me: Yes (Tele: NSR) Phys Exam - Physical Examination Constitutional: NAD (resting comfortably, in good spirits) HEENT: moist MMs Neck: supple Respiratory: no wheezing, no rales, no rhonchi, clear to auscultation bilateral Cardiovascular: RRR, no significant murmur, no rub Gastrointestinal: soft, non-tender, no distention, positive bowel sounds Hernandez in place - straw colored urine Musculoskeletal: no edema Neurological: non-focal, moves all 4 limbs Psychiatric: normal affect, A&O x 3 Dx/Plan (1) Acute renal failure Status: Acute (2) Anemia Code(s): D64.9 - ANEMIA, UNSPECIFIED Status: Acute (3) Elevated PSA Code(s): R97.20 - ELEVATED PROSTATE SPECIFIC ANTIGEN [PSA] Status: Acute (4) Hyperkalemia Code(s): E87.5 - HYPERKALEMIA Status: Acute (5) Obstructive uropathy Code(s): N13.9 - OBSTRUCTIVE AND REFLUX UROPATHY, UNSPECIFIED Status: Acute - Plan Plan: 63yo M with h/o HTN, BPH presents from clinic with AFR and hyperkalemia 2/2 obstructive uropathy now improving. #Acute renal failure/ATN 2/2 obstructive uropathy, improving - DEX in clinic WNL, labs showed PSA 110, K 6.8, Cr 5. Sent to ED - Cr 4.65 -> 2.95 -> 3.4 off IVF and now down to 2.77 today - Hernandez in place, straw-colored urine, cont to diuresis. O 2750 in past 24 hours. - Nephro consulted, repeat renal US, IV iron and Epo, cont to monitor renal function. Initially had increase in Cr after stopped of IVF, this improved with restarting of IVF. Apprec recs - Uro consulted, plan for OP f/u with possible cysto and BPH/prostate eval, apprec recs - Overal improving, Monitor lytes and replace as necessary. Encourage PO hydration and close OP f/u - Renal US - mild hydronephrosis. Repeat US improved hydronephrosis. #Left Thombophlebitis - warm compressess, will cont to monitor #Hyperkalemia, resolved - K 6.4 -> 4.3. Given K lowering agents in ED, cont diuresis. On tele, no acute events. Monitor #HFrEF, new onset, likely 2/2 volume overload from obstructive uropathy - BNP at PCP office of 3200, down to 420 here - Echo 20-25% - On Coreg 25mg BID. Consider Aldactone and Lisinopril if renal function improves - Strict I&O. Consult HF clinic and cardiac rehab - Cards consulted, apprec recs. Rec continued management and repeat echo in 2-3 weeks for eval of improvement of EF and then to pursue ischemic workup if EF does not recover - Likely 2/2 volume overload from obstructive uropathy and anticipate recovery of EF #Anemia - Hb stable at 8.4 -> 9.5. No s/s of acute blood loss. VSS. - Possibly 2/2 kidney disease - Iron studies, B12, folate WNL. FOBT negative. - IV iron and Epo given by Nephro #HTN - Uncontrolled in past, elevated on hospitalization - Holding nephrotoxic meds, increased dose of coreg and now BP stable. - Consider norvasc for BP control if HFrEF is ruled out. Would benefit from MADDY- I if renal function improves. #Elevated PSA - Suspicious for cancer - Urology consulted, suspected BPH, will have cont OP f/u, apprec recs. Code: Full Diet: HH IVF: SL DVT: Heparin PCP: JULISA Ray Disposition: Stable, admitted to tele. No acute events. Renal function improving. Hernandez in place. New onset HFrEF, likely 2/2 volume overload. Overall improving. Will cont to monitor as renal function improves. Anticipate discharge today vs tomorrow pending Nephro recs and clinical status. Will need close OP f/u. Addendum - Attending - Attending Attestation Date/Time: 02/28/19 1040 I personally evaluated the patient and discussed the management with Dr. Flores. I agree with the History, Examination, Assessment and Plan documented above with any addition or exceptions noted below. Patient doing well. Continue IV fluid hydration. Adequate UOP. Await final nephro recs. Nearing stability for discharge.
[2019-02-28] MEDS: Heparin 5,000 UNITS/ML VIAL SC SCH ×2 (08:52→20:19)
[2019-02-28] MEDS: Tamsulosin HCl 0.4 MG CAP PO SCH (08:53)
[2019-02-28] MEDS: Carvedilol 25 MG TAB PO SCH ×2 (08:53→16:40)
[2019-02-28] MEDS: Amlodipine 5 MG TAB PO SCH (08:53)
[2019-02-28] MEDS: Sodium Bicarbonate Tab 325 MG TAB PO SCH ×2 (08:53→20:20)
[2019-02-28] MEDS: Magnesium Oxide 400 MG TAB PO SCH ×2 (08:53→20:21)
[2019-02-28] MEDS: Iron, Sodium Ferric Gluconate 250 MG in Sodium Chloride 0.9% 100 ML IVPB SCH ×2 (09:47→20:21)
--- NOTE | 2019-02-28 10:32 | PRG ---
DATE OF SERVICE: 02/28/2019 SERVICE: Nephrology. SUBJECTIVE: A 63-year-old male, seen in followup for acute kidney injury and acute urinary obstruction with obstructive uropathy. The patient reports feeling better. Denied nausea, vomiting, chest pain, shortness of breath or leg edema. Oral intake has improved. However, there is some confusion as to the amount of fluid intake given the patient also has decreased systolic function earlier on. OBJECTIVE: VITAL SIGNS: Temperature 98.8, pulse 69, respiratory rate 16, SpO2 of 98% on room air, and blood pressure is 140/85. GENERAL: Comfortable male, in no distress. Afebrile. Anicteric. Acyanotic. HEENT: Normocephalic, atraumatic. Oral mucosa is moist. CARDIOVASCULAR: Regular rhythm and rate with normal heart sounds one and two. RESPIRATORY: Good air entry bilaterally with no crackle or rhonchi or use of accessory muscles. GI: Full, soft, nontender, nondistended with normal bowel sounds. EXTREMITIES: Grossly normal looking with no edema or erythema. SKIN: Rather dry with no erythema or rash. SPECIAL EDUCATION SECRETARY: Conscious, alert, oriented x3 with appropriate mental status. Cranial nerves 2 through 12 are grossly intact. DIAGNOSTIC DATA: CBC showed WBC count of 7.5, hemoglobin of 8.4, and platelets of 205. Renal function panel showed sodium 138, potassium 4.3, chloride 108, CO2 of 24, BUN 42, creatinine 2.77, glucose 96, calcium 8.9, phosphorus 3.3, albumin 3.5. Magnesium is 1.6. Of note, creatinine went down from 3.4 yesterday to 2.77. Intake and output. In the last 24 hours, the patient took in 5480 with output of 4377 with positive balance of 1105. This is the first time the patient is in positive balance in the last 4 days. ASSESSMENT: 1. Acute kidney injury: Initially due to obstructive uropathy, but later due to volume depletion from postobstructive diuresis. Creatinine is trending down with liberal oral intake as well as IV fluid therapy. 2. Chronic kidney disease of unclear stage. 3. Acute urinary retention with obstructive uropathy. 4. Volume depletion due to postobstructive diuresis. 5. Hypertension: Control is acceptable. 6. Acute systolic dysfunction: Most likely due to uremia from acute renal failure. Repeat echocardiogram reportedly showed improved systolic function with better renal function. 7. Hyponatremia: Due to volume contraction with appropriate ADH secretion. Resolved with IV fluid therapy. 8. Postobstructive diuresis. The patient is still putting out a large amount of urine. The patient is on IV fluid. PLAN: 1. Continue IV fluid therapy given persistent postobstructive diuresis. 2. [place] oral intake advised. We will change diet to regular from heart healthy. 3. We will also give the patient IV iron given anemia in chronic kidney disease. 4. We will recheck renal function test in the morning. If renal function continued to trend down, we will plan to discontinue IV fluid tomorrow and observe the patient with liberal oral intake. We will follow along with you. Job ID: [id number]
--- NOTE | 2019-02-28 13:39 | PDOC.CPN ---
- Subjective Date: 02/28/19 Time: 13:42 Interval history: The pt seen and examined. No overnight events. No cardiac complaints. - Objective Allergies/Adverse Reactions: Allergies Allergy/AdvReac Type Severity Reaction Status Date / Time No Known Allergies Allergy Unverified 02/21/19 11:37 Visit Medications: Current Medications Acetaminophen (Tylenol) 650 mg PO Q4H PRN PRN Reason: Headache/Fever/Mild Pain (1-3) Last Admin: 02/27/19 21:33 Dose: 650 mg Amlodipine Besylate (Norvasc) 2.5 mg PO DAILY [facility] Last Admin: 02/28/19 08:53 Dose: 2.5 mg Carvedilol (Coreg) 25 mg PO BID-[facility] Last Admin: 02/28/19 08:53 Dose: 25 mg Ergocalciferol (Drisdol) 1.25 mg PO Q7DAYS [facility] Last Admin: 02/24/19 09:00 Dose: 1.25 mg Fluticasone Propionate (Flonase Nasal [place]) 2 gm NASAL BID PRN PRN Reason: Nasal Congestion Heparin Sodium (Porcine) (Heparin) 5,000 units SC BID [facility] Last Admin: 02/28/19 08:52 Dose: 5,000 units Sodium Chloride (Normal Saline 0.9%) 1,000 mls @ 125 mls/hr IV .Q8H [facility] Last Admin: 02/28/19 06:28 Dose: 1,000 mls Ferric Sodium Gluconate Complex 250 mg/ Sodium Chloride 120 mls @ 60 mls/hr IVPB Q12HR [facility] Stop: 02/28/19 21:01 Last Admin: 02/28/19 09:47 Dose: 120 mls Magnesium Oxide (Magnesium Oxide) 400 mg PO BID [facility] Last Admin: 02/28/19 08:53 Dose: 400 mg Ondansetron HCl (Zofran Odt) 4 mg PO Q6H PRN PRN Reason: Nausea/Vomiting Ondansetron HCl (Zofran) 4 mg SLOW IVP Q6H PRN PRN Reason: Nausea/Vomiting Last Admin: 02/26/19 10:10 Dose: 4 mg Sodium Bicarbonate (Bicarbonate, Sodium) 650 mg PO BID [facility] Last Admin: 02/28/19 08:53 Dose: 650 mg Sodium Chloride (Flush - Normal Saline) 10 ml IVF Q12HR [facility] Last Admin: 02/28/19 08:55 Dose: Not Given Sodium Chloride (Flush - Normal Saline) 10 ml IVF PRN PRN PRN Reason: Saline Flush Tamsulosin HCl (Flomax) 0.4 mg PO DAILY [facility] Last Admin: 02/28/19 08:53 Dose: 0.4 mg Vital Signs & Weight: Vital Signs Temp Pulse Resp BP BP Pulse Ox 02/28/19 11:56 98.9 F 83 16 148/90 H 100 02/28/19 08:53 69 02/28/19 08:03 69 16 140/85 98 02/28/19 08:00 97 02/28/19 03:59 98.8 F 81 18 121/71 100 Weight 136 lb - Physical Exam General: alert & oriented x3 HEENT: mucus membranes moist Neck: supple neck Cardiac: regular rate and rhythm, S1/S2 Lungs: clear to auscultation - Labs Result Diagrams: 02/28/19 04:25 02/28/19 04:25 Troponin/CKMB Troponin I Less than 0.010 ng/mL (< 0.028) 02/21/19 09:40 - Telemetry Sinus rhythms and dysrhythmias: sinus rhythm - Assessment/Plan Assessment/Plan: 1. Acute on Chronic Systolic HF with EF 20-25% - stable with RA; On Coreg BID; not on MADDY/ARB due to worsening of renal function; His 2nd non-official Echo showed EF 35-40%; 2. Obstructive Uropathy with elevated PSA - managed by urologist 3. EMILY vs CKD? - on IV fluid; managed by precinct commanding officer 4. HTN - stable 5. anemia - Iron infusion today 6. Hyperkalemia - improved 7. Hematuria - managed by PCP MAR reviewed * Echo on 02/22/2019 with EF 20-25%, mild MR, trace TR and mod-severely dilated LA. EF02/26/2019: 35-40% * Plan for repeat echo in 2-4 weeks. Pt. seen and eval. by me. I agree with the A/P by the COPYWRITER. He denies cardiac complaints. Chest clear. RRR. I will sign off. He can f/u in the office in 2-4 weeks with a repeat echo. continue present meds.
[2019-02-28] MEDS: Acetaminophen 325 MG TAB PO PRN (18:18)
[2019-03-01] MEDS: Sodium Chloride 0.9% 1,000 ML IV SCH (05:02)
[2019-03-01] MEDS: Acetaminophen 325 MG TAB PO PRN ×2 (05:02→17:31)
--- NOTE | 2019-03-01 05:25 | PDOC.FM ---
- Subjective Subjective: Doing well this morning, no acute events overnight. Tolerating PO well, good PO intake, no n/v. No CP, SOB, Abd pain, LE edema. Ambulating well. Phlebitis improved on right arm with hot packs. - Objective MAR Reviewed: Yes Vital Signs & Weight: Vital Signs (12 hours) Temp Pulse Resp BP Pulse Ox 02/28/19 20:07 99.3 F 88 18 112/61 97 Weight Weight 61.689 kg I&O: 02/27/19 02/28/19 03/01/19 06:59 06:59 06:59 Intake Total 1380 5480 5155 Output Total 2750 4375 4375 Balance -1370 1105 780 Result Diagrams: 02/28/19 04:25 03/01/19 05:52 EKG Reviewed by me: Yes (Tele: NSR) Phys Exam - Physical Examination Constitutional: NAD (resting comfortably in bed, in good spirits) HEENT: moist MMs Neck: supple Respiratory: no wheezing, no rales, no rhonchi, clear to auscultation bilateral Cardiovascular: RRR, no significant murmur, no rub Gastrointestinal: soft, non-tender, no distention, positive bowel sounds Musculoskeletal: no edema, pulses present Neurological: non-focal, moves all 4 limbs Psychiatric: normal affect, A&O x 3 Dx/Plan (1) Acute renal failure Status: Acute (2) Anemia Code(s): D64.9 - ANEMIA, UNSPECIFIED Status: Acute (3) Elevated PSA Code(s): R97.20 - ELEVATED PROSTATE SPECIFIC ANTIGEN [PSA] Status: Acute (4) Hyperkalemia Code(s): E87.5 - HYPERKALEMIA Status: Acute (5) Obstructive uropathy Code(s): N13.9 - OBSTRUCTIVE AND REFLUX UROPATHY, UNSPECIFIED Status: Acute - Plan Plan: 63yo M with h/o HTN, BPH presents from clinic with AFR and hyperkalemia 2/2 obstructive uropathy now improving. #Acute renal failure/ATN 2/2 obstructive uropathy, improving - DEX in clinic WNL, labs showed PSA 110, K 6.8, Cr 5. Sent to ED - Cr 4.65 -> 2.95 -> 3.4 -> 2.77 -> 2.42 - Hernandez in place, light straw-colored urine, cont to diuresis. O4375 in past 24 hours. - Nephro consulted, repeat renal US improved, IV iron x2 and Epo, cont to monitor renal function. Initially had increase in Cr after stopped of IVF, this improved with restarting of IVF. Apprec recs and assistance. - Uro consulted, plan for OP f/u with possible cysto and BPH/prostate eval, apprec recs - Overal improving, Monitor lytes and replace as necessary. Encourage PO hydration and close OP f/u - Renal US - mild hydronephrosis. Repeat US improved hydronephrosis. #Left Thombophlebitis, improved - warm compresses, improved this AM #Hyperkalemia, resolved - K 6.4 -> 4.3. Given K lowering agents in ED, cont diuresis. On tele, no acute events. Monitor #Reduced EF from volume overload 2/2 obstructive uropathy - BNP at PCP office of 3200, down to 420 here - Echo 20-25%, repeat unofficial Echo EF 35-40%. Strict I's and O's - On Coreg 25mg BID. - Cards consulted, apprec recs. Rec continued management and repeat echo in 2-3 weeks for eval of improvement of EF and then to pursue ischemic workup if EF does not recover however EF already improved. - Likely 2/2 volume overload from obstructive uropathy and anticipate recovery of EF and no chronic CHF. #Anemia - Hb stable at 8.4 -> 9.5. No s/s of acute blood loss. VSS. - Possibly 2/2 kidney disease - Iron studies, B12, folate WNL. FOBT negative. - IV iron x2 and Epo given by Nephro #HTN - Uncontrolled in past, elevated on hospitalization - Holding nephrotoxic meds, increased dose of coreg and addition of norvasc and now BP stable. Will cont to monitor #Elevated PSA - Suspicious for cancer - Urology consulted, suspected BPH, will have cont OP f/u, apprec recs. Code: Full Diet: HH IVF: NS @ 125cc/hr DVT: Heparin PCP: JULISA Ray Disposition: Stable, admitted to tele. No acute events. Renal function improving. Hernandez in place. Reduced EF likely 2/2 volume overload but improved with diuresis. Overall improving. Will cont to monitor as renal function improves. Anticipate discharge soon pending Nephro recs and clinical status. Will need close OP f/u. Addendum - Attending - Attending Attestation Date/Time: 03/01/19 7590 I personally evaluated the patient and discussed the management with Dr. Flores. I agree with the History, Examination, Assessment and Plan documented above with any addition or exceptions noted below. Patient doing well. Renal function somewhat improved, nephrology on board. He is otherwise stable, BP well controlled. Awaiting further Nephro recs.
[2019-03-01 06:24] LABS: Anion Gap 12 mmol/L (10-20); BUN (Urea Nitrogen) 35 mg/dL (8.4-25.7); Calc. Creatinine Clearance 27 mL/min (70-130); Calcium 8.8 mg/dL (7.8-10.44); Carbon Dioxide 22 mmol/L (23-31); Chloride 107 mmol/L (98-107); Estimated GFR-MDRD 33; Glucose 92 mg/dL (80-115); Potassium 4.2 mmol/L (3.5-5.1); Sodium 137 mmol/L (136-145)
[2019-03-01] MEDS: Amlodipine 5 MG TAB PO SCH (08:45)
[2019-03-01] MEDS: Sodium Bicarbonate Tab 325 MG TAB PO SCH ×2 (08:45→20:13)
[2019-03-01] MEDS: Heparin 5,000 UNITS/ML VIAL SC SCH ×2 (08:45→20:13)
[2019-03-01] MEDS: Magnesium Oxide 400 MG TAB PO SCH ×2 (08:46→20:13)
[2019-03-01] MEDS: Carvedilol 25 MG TAB PO SCH ×2 (08:46→17:31)
[2019-03-01] MEDS: Tamsulosin HCl 0.4 MG CAP PO SCH (08:46)
--- NOTE | 2019-03-01 11:40 | PRG ---
DATE OF SERVICE: 03/01/2019 SERVICE: Nephrology. SUBJECTIVE: A 63-year-old male seen in followup for acute renal failure. The patient reports feeling better. Oral intake has improved. Appetite also is great. Denied nausea or vomiting. The patient also denies shortness of breath or leg swelling. OBJECTIVE: VITAL SIGNS: Temperature 99.1, pulse 81, respiratory rate 16, SpO2 of 100% on room air, and blood pressure is 135/80. GENERAL: Comfortable male, in no distress. Afebrile. Anicteric. Acyanotic. HEENT: Normocephalic and atraumatic. Oral mucosa is moist. NECK: Supple with no JVD. CARDIOVASCULAR: Regular rhythm and rate with normal heart sounds 1 and 2. RESPIRATORY: Good air entry bilaterally with no crackle or rhonchi or use of accessory muscles. GI: Full, soft, nontender, and nondistended with normal bowel sounds. UROGENITAL: Hernandez catheter is in place draining clear urine. EXTREMITIES: Grossly normal looking, atraumatic with no edema or erythema. Intake and output, in the last 24 hours, total intake is 8805 with total output of 6525. DIAGNOSTIC DATA: BMP showed sodium 137, potassium 4.2, chloride 107, CO2 of 22, BUN 35, creatinine 2.42, glucose 92, and calcium 8.8. Note that creatinine has gone down from 2.7 yesterday to 2.42 and BUN also is down from 42 to 35. ASSESSMENT: 1. Acute kidney injury: Due to volume depletion from poor oral intake as well as postoperative diuresis superimposed on obstructive uropathy. Creatinine has improved from peak level of 5.53 to a ligia of 3.95 before trending up with discontinuation of IV fluid. With liberal oral intake and recommencement of IV fluids, creatinine is down to 2.42. 2. Chronic kidney disease: Stage is unclear. Baseline creatinine is unknown at this time. 3. Volume depletion: From poor oral intake as well as postoperative diuresis. Improved with liberal IV and oral intake. 4. Hypertension: Control is acceptable. 5. Acute systolic heart failure: Due to uremia. Improved on repeat echocardiogram with improvement in renal function. 6. Bilateral leg edema: Due to acute congestive heart failure and chronic kidney disease: Resolved. PLAN: We will discontinue IV fluid therapy. [place] oral intake is advised. Continue regular diet with liberal intake. We will recheck renal function in the morning and also monitor intake and output. If BUN and creatinine continued to trend downwards on oral intake, the patient will be discharged with close followup. Further treatment to follow depending on hospital course. Care plan was discussed with the patient and spouse at the bedside and then verbalized understanding. Job ID: [id number]
[2019-03-01 12:49] VITALS: BMI 19.3
[2019-03-02 04:58] LABS: Anion Gap 12 mmol/L (10-20); BUN (Urea Nitrogen) 32 mg/dL (8.4-25.7); Calc. Creatinine Clearance 28 mL/min (70-130); Calcium 9.3 mg/dL (7.8-10.44); Carbon Dioxide 24 mmol/L (23-31); Chloride 105 mmol/L (98-107); Estimated GFR-MDRD 34; Glucose 92 mg/dL (80-115); Potassium 4.3 mmol/L (3.5-5.1); Sodium 137 mmol/L (136-145)
--- NOTE | 2019-03-02 06:36 | PDOC.FM ---
- Subjective Subjective: Doing well this morning, no acute events overnight. Denies Cp, fever/chills, n/v , SOB. Tolerating PO well. Ambulating well. Very eager for discharge. - Objective MAR Reviewed: Yes Vital Signs & Weight: Vital Signs (12 hours) Temp Pulse Resp BP Pulse Ox 03/02/19 04:00 99.0 F 76 18 131/78 100 03/02/19 00:00 98.2 F 03/01/19 19:28 98.9 F 79 18 124/68 100 Weight Admit Weight 67.54 kg Weight 63.503 kg I&O: 02/28/19 03/01/19 03/02/19 06:59 06:59 06:59 Intake Total 5477 5567 4440 Output Total 8702 5075 6545 Balance 1105 2280 -2110 Result Diagrams: 02/28/19 04:25 03/02/19 04:00 Phys Exam - Physical Examination Constitutional: NAD HEENT: moist MMs Neck: supple Respiratory: no wheezing, no rales, no rhonchi, clear to auscultation bilateral Cardiovascular: RRR, no significant murmur, no rub Gastrointestinal: soft, non-tender, no distention, positive bowel sounds Darby in place, straw-colored urine Musculoskeletal: no edema Neurological: non-focal, moves all 4 limbs Psychiatric: normal affect, A&O x 3 Deviation from normal: L-thrombophlebitis improved Dx/Plan (1) Acute renal failure Status: Acute (2) Anemia Code(s): D64.9 - ANEMIA, UNSPECIFIED Status: Acute (3) Elevated PSA Code(s): R97.20 - ELEVATED PROSTATE SPECIFIC ANTIGEN [PSA] Status: Acute (4) Hyperkalemia Code(s): E87.5 - HYPERKALEMIA Status: Acute (5) Obstructive uropathy Code(s): N13.9 - OBSTRUCTIVE AND REFLUX UROPATHY, UNSPECIFIED Status: Acute - Plan Plan: 63yo M with h/o HTN, BPH presents from clinic with AFR and hyperkalemia 2/2 obstructive uropathy now improving. #Acute renal failure/ATN 2/2 obstructive uropathy, improving - DEX in clinic WNL, labs showed PSA 110, K 6.8, Cr 5. Sent to ED - Cr 4.65 -> 2.95 -> 3.4 -> 2.77 -> 2.42 -> 2.35 - Darby in place, light straw-colored urine, cont to diuresis. O6550 in past 24 hours. - Nephro consulted, repeat renal US improved, IV iron x2 and Epo, cont to monitor renal function. Initially had increase in Cr after stopped of IVF, this improved with restarting of IVF and has continued to improve even off fluids for past 24 hours. Apprec recs and assistance. - Uro consulted, plan for OP f/u with possible cysto and BPH/prostate eval, apprec recs - Overal improving, Monitor lytes and replace as necessary. Encourage PO hydration and close OP f/u - Renal US - mild hydronephrosis. Repeat US improved hydronephrosis. #Left Thombophlebitis, improved - warm compresses, improved #Hyperkalemia, resolved - K 6.4 -> 4.3. Given K lowering agents in ED, cont diuresis. On tele, no acute events. Monitor #Reduced EF from volume overload 2/2 obstructive uropathy - BNP at PCP office of 3200, down to 420 here - Echo 20-25%, repeat unofficial Echo EF 35-40%. Strict I's and O's - On Coreg 25mg BID. - Cards consulted, apprec recs. Rec continued management and repeat echo in 2-3 weeks for eval of improvement of EF and then to pursue ischemic workup if EF does not recover however EF already improving. - Likely 2/2 volume overload from obstructive uropathy and anticipate recovery of EF and no chronic CHF. #Anemia - Hb stable at 8.4 -> 9.5. No s/s of acute blood loss. VSS. - Possibly 2/2 kidney disease - Iron studies, B12, folate WNL. FOBT negative. - IV iron x2 and Epo given by Nephro #HTN - Uncontrolled in past, elevated on hospitalization - Holding nephrotoxic meds, increased dose of coreg and addition of norvasc and now BP stable. Will cont to monitor #Elevated PSA - Suspicious for cancer - Urology consulted, suspected BPH, will have cont OP f/u, apprec recs. Code: Full Diet: HH IVF: SL DVT: Heparin PCP: JULISA Ray Disposition: Stable, admitted to tele. No acute events. Renal function improving. Darby in place. Reduced EF likely 2/2 volume overload but improved with diuresis. Overall improving. Will cont to monitor as renal function improves. Anticipate discharge today. Will need close OP f/u first of next week. Addendum - Attending - Attending Attestation Date/Time: 03/02/19 9108 I personally evaluated the patient and discussed the management with Dr. Flores. I agree with the History, Examination, Assessment and Plan documented above with any addition or exceptions noted below. Patient here for obstructive uropathy with resulting ARF. His creatinine is improved and he is making adequate UOP. He will likely be discharged later today with darby in place for outpatient Urology follow up. He currently has a low EF as documented by current Echo. However, heart failure meds being held at this time by us and cardiology due to renal function and also belief that as his fluid status has improved that his repeat echo will not show overt heart failure. Repeat Echo as outpatient.
[2019-03-02] MEDS: Sodium Bicarbonate Tab 325 MG TAB PO SCH (09:05)
[2019-03-02] MEDS: Heparin 5,000 UNITS/ML VIAL SC SCH (09:05)
[2019-03-02] MEDS: Carvedilol 25 MG TAB PO SCH ×2 (09:05→16:21)
[2019-03-02] MEDS: Magnesium Oxide 400 MG TAB PO SCH (09:06)
[2019-03-02] MEDS: Tamsulosin HCl 0.4 MG CAP PO SCH (09:06)
[2019-03-02] MEDS: Amlodipine 5 MG TAB PO SCH (09:07)
[2019-03-02 12:45] VITALS: BP 137/79; TEMP 98.4
[2019-03-02] MEDS: Acetaminophen 325 MG TAB PO PRN (13:36)
--- NOTE | 2019-03-02 13:57 | PRG ---
DATE OF SERVICE: 03/02/2019 SERVICE: Nephrology. SUBJECTIVE: A 63-year-old male, admitted due to difficulty urination and found to have bladder outlet obstruction requiring Hernandez catheter placement. Nephrology is seeing the patient for acute kidney injury, which was thought to be due to obstructive uropathy. The patient continued to have postobstructive diuresis. Urine output remains markedly elevated. Denied nausea, vomiting, or abdominal pain. OBJECTIVE: VITAL SIGNS: Temperature 98.9, pulse 74, respiratory rate 14, SpO2 of 100% on room air, blood pressure is 151/91. GENERAL: Comfortable male, in no distress. Afebrile. Anicteric. Acyanotic. HEENT: Normocephalic and atraumatic. Oral mucosa is moist. CARDIOVASCULAR: Regular rhythm and rate with normal heart sounds 1 and 2. RESPIRATORY: Good air entry bilaterally with no crackle or rhonchi or use of accessory muscles. GI: Full, soft, nontender, and nondistended with normal bowel sounds. UROGENITAL: Hernandez catheter is in place draining urine. EXTREMITIES: Grossly normal looking and atraumatic with no edema or erythema. LUMBER ESTIMATOR: Conscious, alert, and oriented x3 with appropriate mental status. Cranial nerves 2 through 12 are grossly intact. The patient is ambulant. INTAKE AND OUTPUT: In the last 24 hours, the patient took in 4440 mL of fluid and put out 6550 mL of urine with negative balance of 2110. DIAGNOSTIC DATA: BMP showed sodium 137, potassium 4.3, chloride 105, CO2 of 24, BUN 32, creatinine 2.35, glucose 92, calcium 9.3. Of note, on March 01 (yesterday), BUN was 35 and creatinine was 2.42. These are improved from levels 2 days ago of BUN 43 and creatinine 3.40. Note that IV fluid was discontinued on March 01. ASSESSMENT: 1. Acute kidney injury: Initially due to obstructive uropathy related to bladder outlet obstruction, but later due to volume depletion related to postobstructive diuresis. Creatinine has trended downwards with IV fluid and continued to trend downwards with discontinuation of IV fluid and escalation of oral intake. Note, however, the patient continued to have polyuria with total output of 6 L in the last 24 hours. 2. Chronic kidney disease: Baseline creatinine is unknown. 3. Anemia in chronic kidney disease: Status post iron therapy and erythrocyte-stimulating agent. 4. Bladder outlet obstruction, status post Hernandez catheter: The patient is to follow up with urologist. 5. Acute systolic dysfunction: Most likely due to uremia. Improved on repeat echo. PLAN: With improvement of renal function following discontinuation of IV fluid therapy, the patient can be discharged from Nephrology point of view to continue liberal oral and salt intake at home. However, close followup in 3 to 5 days is recommended. The patient is to do renal function panel on Tuesday, March 05, and will be seen in clinic on March 06. Care plan was discussed with the patient and spouse, and they verbalized understanding. I explicitly told them that there is no need for salt or fluid restriction, that in fact, they should liberalize this and take salty food as well as Pedialyte if needed. I also discussed with primary attending about care plan, and discharge today is anticipated. Job ID: [id number]
--- NOTE | 2019-03-03 05:10 | DIS ---
DATE OF ADMISSION: 02/21/2019 DATE OF DISCHARGE: 03/02/2019 RESIDENT: Tony Flores MD. ADMITTING ATTENDING: Babar Lott MD. DISCHARGE ATTENDING: Danial Persaud MD. CONSULTS: 1. Cardiology, Dr. Mcintosh. 2. Urology, Dr. Olmstead. 3. Nephrology, Dr. Chandler. PROCEDURES: 1. Hernandez placed on 02/21/2019. 2. Chest x-ray on 02/21/2019 demonstrating no acute cardiopulmonary process. 3. Renal ultrasound on 02/22/2019 demonstrating mild bilateral hydronephrosis. 4. Bilateral venous Doppler ultrasound on 02/22/2019 demonstrating no DVT. 5. Renal ultrasound on 02/25/2019 demonstrating interval resolution of right hydronephrosis and overall improvement in now minimal left hydronephrosis. 6. Echocardiogram on 02/22/2019 demonstrating ejection fraction of 20% to 25%. 7. Left ventricular size mildly increased. 8. Unofficial echocardiogram on 02/26/2019, demonstrating increased ejection fraction of 35% to 40%. 9. IV iron x2 doses. PRIMARY DIAGNOSES: 1. Acute renal failure and acute tubular necrosis secondary to obstructive uropathy, improving. 2. Reduced ejection fraction secondary to volume overload from his obstructive uropathy. SECONDARY DIAGNOSES: 1. Hyperkalemia, resolved. 2. Anemia. 3. Hypertension. 4. Elevated prostate-specific antigen. DISCHARGE MEDICATIONS: 1. Flomax 0.4 mg p.o. daily. 2. Ergocalciferol 1.25 mg p.o. q.7 days. 3. Coreg 25 mg p.o. b.i.d. 4. Norvasc 2.5 mg p.o. daily. DISCONTINUED MEDICATIONS: 1. Carvedilol 3.125 mg p.o. b.i.d. 2. Lisinopril 10 mg p.o. daily. HISTORY OF PRESENT ILLNESS AND HOSPITAL COURSE: Please refer to progress note dictated on 02/27/2019 for hospital course up until this point. On the morning of 02/27/2019, the patient had a repeat BMP this showed worsening of his renal function off IV fluids. Thus, it was determined the patient would need to stay a few more days to monitor his renal function. He was restarted on IV fluids and encouraged to take plenty of p.o. Over the next 24 hours, he was given normal saline IV fluids and renal function was monitored. He has continued to have good urine output via his Hernandez and did very well. The patient was then subsequently taken off IV fluids for the next 24 hours and encouraged p.o. intake with monitoring of his renal function. His renal function did continue to improve, even off IV fluids with a discharge creatinine of 2.35. It was then determined the patient was safe for discharge to continue with aggressive oral hydration and to follow up with his surgical technology instructor, Dr. Chandler, and as well as his primary care physician Dr. Ray next week. Dr. Chandler gave recommendations to have a BMP checked on Tuesday, 2019 and he is to follow up in his clinic on 03/06/2019, to discuss the results. The patient was also found to have a mild right thrombophlebitis from previous a IV site, this improved with warm compresses. It was also determined that a repeat unofficial echo demonstrated improvement of his ejection fraction. It was determined the patient did not likely have heart failure with ejection fraction , but instead had had reduced ejection fraction secondary to volume overload from the obstructive uropathy and his heart was recovering appropriately. Due to the very low suspicion for heart failure with reduced ejection fraction, it was determined the patient would be safe to be started on amlodipine 2.5 mg daily to help control his blood pressure with very good control of his blood pressure with this and his Coreg. His lisinopril was continued to be held secondary to his renal function. Cardiology did recommend a repeat echocardiogram in 2-3 weeks to continue to monitor the recovery of his ejection fraction. If his ejection fraction does not recover, then it was suggested that he pursue an an ischemic workup with them. On the morning of discharge, patient was doing very well, ambulating around the room without any difficulty, tolerating p.o. well. No nausea, vomiting, fevers, chills. He was very eager for discharge and discharge plan was discussed with the patient and at bedside who voiced agreement and understanding of discharge plan. They were very eager to go home. The patient was given information on all specialist and primary care physician to follow up with and was given his medications. All questions were answered appropriately. The patient was given instructions on Hernandez care as well. The patient was then discharged home. DISPOSITION: Stable. DISCHARGE INSTRUCTIONS: 1. Location: Home. 2. Diet: Regular. 3. Activity as tolerated. 4. Follow up: a. The patient should follow up with Nephrology on 03/06/2019, Dr. Chandler. b. The patient to follow up with his primary care physician, Dr. Ray within 1 week. c. The patient to follow up with Dr. Olmstead, urology within 1 week. d. The patient to followup with Dr. Mcintosh, cardiology in 2-3 weeks. Job ID: [id number] [facility]
== END 2019-03-02 17:50 | disposition home or self-care (01) | DRG 682 ==
LOC: ERS 09:27 → ERHOLD 12:48 → 2NO 16:47
PROVIDERS: ADMIT Family Medicine; ATTEND Family Medicine
DX: N17.0 Acute kidney failure with tubular necrosis (principal); I50.23 Acute on chronic systolic (congestive) heart failure; I13.2 Hypertensive heart and chronic kidney disease with heart failure and with stage 5 chronic kidney disease, or end stage renal disease; E87.2 Acidosis; E87.1 Hypo-osmolality and hyponatremia; N17.9 Acute kidney failure, unspecified; I25.5 Ischemic cardiomyopathy; N25.81 Secondary hyperparathyroidism of renal origin; N13.9 Obstructive and reflux uropathy, unspecified; E87.5 Hyperkalemia; I50.9 Heart failure, unspecified; N18.6 End stage renal disease; D63.1 Anemia in chronic kidney disease; F12.10 Cannabis abuse, uncomplicated; N40.0 Benign prostatic hyperplasia without lower urinary tract symptoms; R33.9 Retention of urine, unspecified; E83.42 Hypomagnesemia; E86.9 Volume depletion, unspecified; I80.8 Phlebitis and thrombophlebitis of other sites
CPT/HCPCS: 36415; 51702; 71046; 76770; 80048; 80053; 80069; 81003; 82274; 82306; 82550; 82570; 82607; 82728; 82746; 83540; 83550; 83735; 83880; 83970; 84100; 84156; 84300; 84484; 84540; 85025; 85027; 93005; 93306; 93798; 93970; 96361; 96365; 96375; J0360; J1644; J1815; J2405; J2916; J3475; J3490; Q5105

== ENCOUNTER 2019-07-17 06:14 | Outpatient (CLI) | payer OTHER ==
[2019-07-18 18:06] LABS: SARS-CoV-2 MS2 Positive; SARS-CoV-2 N Gene Negative; SARS-CoV-2 S Gene Negative; SARS-CoV-2 orf1ab Negative
== END 2019-07-17 06:15 | disposition home or self-care (01) ==
LOC: LABBT 06:14
PROVIDERS: ATTEND Urology
DX: Z01.812 Encounter for preprocedural laboratory examination (principal); Z11.59 Encounter for screening for other viral diseases; R33.9 Retention of urine, unspecified; N40.1 Benign prostatic hyperplasia with lower urinary tract symptoms; N13.8 Other obstructive and reflux uropathy
CPT/HCPCS: 87635; U0003

== ENCOUNTER 2019-07-19 09:11 | Day surgery (SDC) | payer OTHER, SELFPAY ==
[2019-07-16 12:08] VITALS: BMI 20.7
[2019-07-19] MEDS ORDERED: PROPOFOL 200 MG/20 ML VIAL ONE (12:15)
[2019-07-19] MEDS ORDERED: Lidocaine 1% PF 5 ML VIAL ONE (12:15)
[2019-07-19] MEDS ORDERED: Fentanyl 100 MCG/2 ML VIAL ONE ×2 (12:47→15:24)
[2019-07-19 12:51] LABS: Hemoglobin 12.5 g/dL (14.0-18.0); Mean Corpuscular HGB CONC 32.7 g/dL (32.0-36.0); Mean Corpuscular Hemoglobin 33.2 pg (27.0-31.0); Mean Platelet Volume 7.5 fL (7.4-10.4); Platelet Count 182 thou/uL (130-400); RBC Distribution Width 12.3 % (11.5-14.5); Red Blood Cell (RBC) Count 3.77 mill/uL (4.70-6.10); White Blood Cell (WBC) Count 4.6 thou/uL (4.8-10.8)
[2019-07-19] MEDS ORDERED: Levofloxacin 500 mg/D5W 100 ml Premix Bag ONE (13:01)
[2019-07-19 13:05] LABS: Anion Gap 14 mmol/L (10-20); BUN (Urea Nitrogen) 34 mg/dL (8.4-25.7); Calc. Creatinine Clearance 30 mL/min (70-130); Calcium 9.6 mg/dL (7.8-10.44); Carbon Dioxide 20 mmol/L (23-31); Chloride 110 mmol/L (98-107); Estimated GFR-MDRD 34; Glucose 82 mg/dL (80-115); Potassium 5.4 mmol/L (3.5-5.1); Sodium 139 mmol/L (136-145)
[2019-07-19] MEDS ORDERED: B & O ONE (13:40)
[2019-07-19] MEDS ORDERED: HYDROcodone/Acetaminophen 5/325 mg Tablet ONE (16:31)
--- NOTE | 2019-07-19 21:09 | OP ---
DATE OF PROCEDURE: 07/19/2019 COMMISSARY HELPER: None. PREPROCEDURE DIAGNOSES: 1. BPH with bladder outlet obstruction. 2. Urinary retention. POSTPROCEDURE DIAGNOSES: 1. BPH with bladder outlet obstruction. 2. Urinary retention. PROCEDURES PERFORMED: Transurethral resection of the prostate/transurethral vaporization of prostate. ANESTHESIA: LMA anesthesia. COMPLICATIONS: None. FLUIDS: 2 L of crystalloid. BLOOD LOSS: 25 mL. SPECIMENS: TURP chips. POSTPROCEDURE STATUS: Satisfactory. INDICATIONS FOR PROCEDURE: Mr. Hatch is a 63-year-old male with history of urinary retention and acute kidney injury. At the time of his diagnosis, he presented with multiple problems to the [facility] Emergency Department, was found to have severe EMILY. He had urinary retention with bilateral hydroureteronephrosis. EMILY improved with Hernandez catheter placement. I was consulted as an inpatient and he went home with his Hernandez catheter. He was worked up as an outpatient and was found to have significant BPH with bladder outlet obstruction. He appeared to have residual detrusor function. After indications/risks/benefits/alternatives/possible outcomes were discussed with the patient in detail, he elected to proceed with bipolar transurethral vaporization of the prostate/transurethral resection of the prostate and all indicated procedures. His surgery was delayed secondary to COVID-19. DESCRIPTION OF PROCEDURE: The patient was taken to the operating room and after successful induction of LMA anesthesia, he was placed in the dorsal lithotomy position. His genitalia were prepped and draped in usual sterile fashion. A time-out was performed, following which the 25-Omani bipolar resectoscope sheath was inserted into the patient's bladder. His urethra was normal. Prostatic urethra was obstructed with bilobar enlargement and circumferential elevation of the bladder neck secondary to significant BPH. The button vaporization element was not available as the scope was being processed and therefore, we started out with a loop. We began resecting the left lobe starting at the bladder neck and working away distally to the verumontanum. During the resection, we took care not to injure the ureteral orifices proximally or go beyond the verumontanum distally. We resected this lobe. Hemostasis was achieved, and the chips were evacuated with an [employer] evacuator. We then worked on part of the right lateral lobe. However, at this point, the Olympus bipolar resectoscope was available and we exchanged the scopes and then used the button element to complete transurethral vaporization of the prostate. We completely vaporized the right lobe followed by the posterior tissue and some of the anterior tissue. Once a good channel was achieved, we irrigated the patient's bladder free of any debris. Hemostasis was achieved. At the end of the case, he had a good channel and the ureteral orifices were in their normal location and had clear efflux bilaterally, and there was no damage to the sphincter. The resectoscope was withdrawn. A 22-Omani three-way was inserted into the patient's bladder, and 25 mL of sterile water was placed in the balloon. We manually irrigated the catheter at the end of the case and this was clear. Continuous bladder irrigation was initiated. The patient tolerated the procedure well, was awoken from anesthesia and transferred to the PACU in satisfactory condition. Job ID: [id number]
== END 2019-07-19 17:40 | disposition home or self-care (01) ==
LOC: SDC 09:11
PROVIDERS: ATTEND Urology
PROC: 0VB08ZZ Excision of Prostate, Via Natural or Artificial Opening Endoscopic (ICD-10-PCS; principal; 2019-07-19)
DX: C61 Malignant neoplasm of prostate (principal); N40.1 Benign prostatic hyperplasia with lower urinary tract symptoms; R33.8 Other retention of urine; N13.8 Other obstructive and reflux uropathy; N17.9 Acute kidney failure, unspecified
CPT/HCPCS: 36415; 80048; 85027; 88305; J1956; J2001; J2704; J3010

== ENCOUNTER 2022-12-03 13:27 | Emergency (ER) | payer OTHER ==
[2022-12-03 14:34] LABS: #Eosinphils 0.2 thou/uL (0.0-0.7); #Monocytes 0.6 thou/uL (0.11-0.59); #Neutrophils 3.3 thou/uL (1.40-6.50); %Basophils 0.4 % (0.0-1.0); %Eosinophils 4.4 % (0.0-10.0); %Monocytes 11.7 % (0.0-10.0); %Neutrophils 68.3 % (42.0-75.0); Hematocrit 40.7 % (42.0-52.0); Hemoglobin 13.6 g/dL (14.0-18.0); Mean Corpuscular HGB CONC 33.4 g/dL (32.0-36.0); Mean Corpuscular Volume 98.8 fl (78.0-98.0); Mean Platelet Volume 8.9 fL (7.4-10.4); Platelet Count 172 10x3/uL (130-400); RBC Distribution Width 12.9 % (11.5-14.5); Red Blood Cell (RBC) Count 4.12 mill/uL (4.70-6.10); White Blood Cell (WBC) Count 4.8 10x3/uL (4.8-10.8)
[2022-12-03 14:57] LABS: ALT (SGPT) 63 U/L (8-55); AST (SGOT) 49 U/L (5-34); Alkaline Phosphatase 60 U/L (40-110); Anion Gap 12 mmol/L (10-20); BUN (Urea Nitrogen) 26 mg/dL (8.4-25.7); Bilirubin, Total 0.4 mg/dL (0.2-1.2); Calc. Creatinine Clearance 0 mL/min (70-130); Carbon Dioxide 28 mmol/L (23-31); Chloride 105 mmol/L (98-107); Estimated GFR 48; Globulin 2.8 g/dL (2.4-3.5); Glucose 74 mg/dL (80-115); Potassium 4.5 mmol/L (3.5-5.1); Protein, Total 6.8 g/dL (5.8-8.1); Sodium 140 mmol/L (136-145)
[2022-12-03 14:59] LABS: Troponin I Less than 0.010 ng/mL (< 0.028)
== END 2022-12-03 15:53 | disposition home or self-care (01) ==
LOC: ERS 13:27
DX: S30.1XXA Contusion of abdominal wall, initial encounter (principal); F43.0 Acute stress reaction; F41.9 Anxiety disorder, unspecified; I13.2 Hypertensive heart and chronic kidney disease with heart failure and with stage 5 chronic kidney disease, or end stage renal disease; I50.9 Heart failure, unspecified; N18.6 End stage renal disease; Z79.899 Other long term (current) drug therapy; X50.9XXA Other and unspecified overexertion or strenuous movements or postures, initial encounter
CPT/HCPCS: 36415; 71045; 80053; 84484; 85025; 93005

== ENCOUNTER 2024-01-27 07:15 | Emergency (ER) | payer OTHER ==
[2024-01-27] MEDS ORDERED: Acetaminophen 500 MG TAB ONE (08:30)
[2024-01-27 09:06] LABS: #Basophils Less than 0.03 10x3/uL (0.0-0.2); %Basophils 0.3 % (0.0-1.0); %Eosinophils 2.3 % (0.0-10.0); %Lymphocytes 10.9 % (21.0-51.0); %Monocytes 8.7 % (0.0-10.0); %Neutrophils 77.5 % (42.0-75.0); Hematocrit 38.4 % (42.0-52.0); Hemoglobin 13.5 g/dL (14.0-18.0); Mean Corpuscular HGB CONC 35.2 g/dL (32.0-36.0); Mean Corpuscular Hemoglobin 32.8 pg (27.0-31.0); Mean Corpuscular Volume 93.2 fL (78.0-98.0); Platelet Count 184 10x3/uL (130-400); RBC Distribution Width 13.3 % (11.5-14.5); Red Blood Cell (RBC) Count 4.12 mill/uL (4.70-6.10)
[2024-01-27 09:22] LABS: Anion Gap 15 mmol/L (10-20); BUN (Urea Nitrogen) 24 mg/dL (8.4-25.7); Calc. Creatinine Clearance 0 mL/min (70-130); Calcium 9.5 mg/dL (7.8-10.44); Carbon Dioxide 24 mmol/L (23-31); Chloride 105 mmol/L (98-107); Estimated GFR 60; Glucose 135 mg/dL (80-115); Potassium 3.9 mmol/L (3.5-5.1); Sodium 140 mmol/L (136-145)
[2024-01-27] MEDS ORDERED: levETIRAcetam 500 MG (5 mL) VIAL ONE (09:53)
[2024-01-27 10:08] LABS: Bacteria/HPF None Seen HPF (None Seen); Bilirubin Negative (Negative); Blood, Urine Negative (Negative); CAUTI Indications for Culture Dysuria,urgency,freq; Clarity Clear (Clear); Glucose, Urine (Dipstick) Normal (Negative); Ketone, Urine Negative (Negative); Leukocyte Negative Leu/uL (Negative); Nitrite Negative (Negative); Protein, Urine (Dipstick) 30 mg/dL (Neg-Trace); RBC/HPF 0-3 HPF (0-3); Specific Gravity, Urine 1.025 (1.002-1.036); Squamous Epithelial 0-3 HPF (0-3); Urobilinogen Normal mg/dL (Less than 2); WBC/HPF 0-3 HPF (0-3); pH, Urine 5.5 (5.0-9.0)
[2024-01-27 10:13] LABS: Urine Culture Reflex No No
[2024-01-27] MEDS ORDERED: levETIRAcetam 500 MG TAB ONE (10:13)
[2024-01-27 10:16] LABS: Amphetamine Not Detected (NotDetected); Barbiturates Screen Not Detected (NotDetected); Benzodiazepine Screen Not Detected (NotDetected); Cocaine Metabolite Screen Not Detected (NotDetected); Methadone Not Detected (NotDetected); Methamphetamine Not Detected (NotDetected); Opiate Screen Not Detected (NotDetected); Oxycodone Screen Not Detected (NotDetected); Phencyclidine (PCP) Not Detected (NotDetected); THC/Cannabinoid Screen Not Detected (NotDetected); Tricyclic Screen Not Detected (NotDetected)
== END 2024-01-27 10:45 | disposition home or self-care (01) ==
LOC: ERS 07:15
DX: R56.9 Unspecified convulsions (principal); I11.0 Hypertensive heart disease with heart failure; I50.9 Heart failure, unspecified; Z79.899 Other long term (current) drug therapy
CPT/HCPCS: 36415; 70450; 80048; 80306; 81001; 84146; 85025; 93005; J1953

== ENCOUNTER 2024-02-06 22:59 | Emergency (ER) | payer OTHER ==
[2024-02-06] MEDS ORDERED: levETIRAcetam 500 MG (5 mL) VIAL ONE (23:49)
[2024-02-07 00:02] LABS: #Basophils 0.03 10x3/uL (0.0-0.2); %Basophils 0.6 % (0.0-1.0); %Eosinophils 5.2 % (0.0-10.0); %Lymphocytes 16.4 % (21.0-51.0); %Monocytes 7.9 % (0.0-10.0); %Neutrophils 69.7 % (42.0-75.0); Hematocrit 39.4 % (42.0-52.0); Mean Corpuscular HGB CONC 35.5 g/dL (32.0-36.0); Mean Corpuscular Hemoglobin 32.4 pg (27.0-31.0); Mean Corpuscular Volume 91.2 fL (78.0-98.0); Mean Platelet Volume 9.3 fL (7.4-10.4); Platelet Count 193 10x3/uL (130-400); RBC Distribution Width 12.9 % (11.5-14.5); Red Blood Cell (RBC) Count 4.32 mill/uL (4.70-6.10)
[2024-02-07] MEDS ORDERED: Acetaminophen 325 MG TAB ONE (00:04)
[2024-02-07 00:20] LABS: ALT (SGPT) 36 U/L (8-55); AST (SGOT) 28 U/L (5-34); Albumin 3.9 g/dL (3.4-4.8); Alkaline Phosphatase 72 U/L (40-110); Anion Gap 15 mmol/L (10-20); BUN (Urea Nitrogen) 24 mg/dL (8.4-25.7); Bilirubin, Total 0.4 mg/dL (0.2-1.2); Calc. Creatinine Clearance 0 mL/min (70-130); Calcium 9.7 mg/dL (7.8-10.44); Carbon Dioxide 19 mmol/L (23-31); Chloride 108 mmol/L (98-107); Estimated GFR 60; Globulin 4.3 g/dL (2.4-3.5); Glucose 101 mg/dL (80-115); Potassium 4.3 mmol/L (3.5-5.1); Protein, Total 8.2 g/dL (5.8-8.1); Sodium 138 mmol/L (136-145)
== END 2024-02-07 02:50 ==
LOC: ERS 22:59
DX: R56.9 Unspecified convulsions (principal); I13.2 Hypertensive heart and chronic kidney disease with heart failure and with stage 5 chronic kidney disease, or end stage renal disease; N18.6 End stage renal disease; I50.9 Heart failure, unspecified; Z79.899 Other long term (current) drug therapy
CPT/HCPCS: 36415; 70450; 80053; 85025; J1953